=== PATIENT | female | born 1995 | race Hispanic/Latino ===

== ENCOUNTER 2025-02-06 15:35 | Emergency (ER) | payer OTHER ==
[~2025-02-06] VITALS: Ht 165.1 cm; Wt 68.0 kg
--- NOTE | 2025-02-06 15:51 | ERN ---
ED Note History of Present Illness Stated Complaint: SYNCOPE Chief Complaint: Syncope Time Seen by MD: 15:41 Dictation: PATIENT IS A 29-YEAR-OLD FEMALE HERE WITH HER MOTHER WITH COMPLAINTS OF A SYNCOPAL EPISODES, 30 MINUTES PRIOR TO ARRIVAL. PER THE MOTHER, SHE WAS TALKING ON THE PHONE WITH THE PATIENT WITH THE PATIENT'S STOPPED TALKING AND SHE WAS TOLD BY THE DAUGHTER THAT PATIENT HAD FAINTED. PATIENT CURRENTLY ALERT AND ORIENTED X4 SPEECH IS CLEAR. SHE IS COMPLAINING OF A RIGHT TEMPOROPARIETAL HEADACHE AND FEELS DIZZY. SHE STATES SHE HAD A SIMILAR EPISODE TWO DAYS AGO IN [facility] HAD A CT DONE THAT WAS NEGATIVE. NO MARTINES OR RACCOON SIGN. NO HEMOTYMPANUM. IN HIS NO SPECIFIC COMPLAINTS OF ACCEPT HER EPIGASTRIC AREA IS BURNING. Allergies: Coded Allergies: No Known Allergies (Unverified Allergy, Unknown, 02/06/25) Past Medical History Past Medical History: Anxiety, Depression Surgical History: BTL, History: Not Applicable LMP: Feb 01, 2025 RN Note Reviewed/Agreed w/PFSH: Yes Review of System Dictation CONSTITUTIONAL: NEGATIVE EXCEPT FOR HPI HEAD/FACE: NEGATIVE EXCEPT FOR HPI SYNCOPE EENT: NEGATIVE EXCEPT FOR HPI RESPIRATORY: NEGATIVE EXCEPT FOR HPI GASTROINTESTINAL/ABDOMINAL: NEGATIVE EXCEPT FOR HPI GENITOURINARY: NEGATIVE EXCEPT FOR HPI MUSCULOSKELETAL: NEGATIVE EXCEPT FOR HPI INTEGUMENTARY: NEGATIVE EXCEPT FOR HPI NEUROLOGICAL/PSYCH: NEGATIVE EXCEPT FOR HPI RIGHT TEMPOROPARIETAL HEADACHE. HEMATOLOGIC/LYMPHATIC: NEGATIVE EXCEPT FOR HPI ALL SYSTEMS NEGATIVE, EXCEPT NOTED ABOVE. 13 POINT REVIEW OF SYSTEMS ASSESSED AND ALL NEGATIVE EXCEPT FOR ABOVE. Initial Vital Sign VS Vital Signs Date Time Temp Pulse Resp B/P (MAP) Pulse Ox O2 Delivery O2 Flow Rate FiO2 02/06/25 15:37 98.2 85 16 117/80 100 Room Air 0 02/06/25 16:29 21 Physical Exam Dictation VITAL SIGNS REVIEWED GENERAL APPEARANCE: ALERT, ORIENTED X 3, NO ACUTE DISTRESS, WELL DEVELOPED, NOURISHED. HEAD AND FACE: NON-TRAUMATIC. NO MARTINES OR RACCOON SIGN. EYES: PERRL, PINK CONJUNCTIVAS, EYELID NO TRAUMA, ANTERIOR CHAMBER WITH ARCUS SENILIS. EARS: PINNAS INTACT AND NO SIGNS OF TRAUMA OR ERYTHEMA EAR CANALS CLEAR AND NO DISCHARGE TM NO ERYTHEMA NO HEMOTYMPANUM NOSE: NO DISCHARGE, NO BLEEDING. OROPHARYNX: MOUTH NORMAL, TONGUE PINK, PHARYNX CLEAR,NO ERYTHEMA, TONSILS NO EXUDATES, NO ABSCESSES NOTED, MUCOUS MEMBRANE MOIST NECK: SUPPLE, NON-TENDER, NO THYROMEGALY, NO MASSES, NO JVD, NO BRUITS BREAST:DEFERRED CHEST:NO TENDERNESS, NO CREPITUS, NO PARADOXICAL MOVEMENT, NO RETRACTIONS LUNGS:CLEAR, WELL-VENTILATED, SYMMETRIC, NO RALES, NO WHEEZING, NO RHONCHI, NO STRIDOR, GOOD BREATH SOUNDS BILATERALLY HEART: REGULAR RATE, REGULAR RHYTHM, NO MURMUR, NO GALLOPS VASCULAR: NO PERIPHERAL EDEMA, ABDOMEN: SOFT, POSITIVE BOWEL SOUNDS, NONDISTENDED, NO GUARDING, MILD EPIGASTRIC TENDERNESS, NO REBOUND, NO MASSES NO HEPATOMEGALY, NO SPLENOMEGALY, NO GONZALEZ'S SIGN, NO HERNIAS. RECTAL: DEFERRED GENITAL: DEFERRED NEUROLOGICAL: NORMAL SPEECH, MOTOR FUNCTION INTACT, SENSORY FUNCTION INTACT MUSCULOSKELETAL: NECK NONTENDER, FULL RANGE OF MOTION, BACK NONTENDER, FULL RANGE OF MOTION, EXTREMITIES: NONTENDER, FULL RANGE OF MOTION SKIN: COLOR PINK, DRY, NO TURGOR, NO RASH, NO LACERATIONS, NO ABRASIONS, NO CONTUSIONS. LYMPHATIC: DEFERRED Results (Laboratory/Radiology) Laboratory/Radiology Laboratory Tests Test 02/06/25 16:18 02/06/25 17:15 White Blood Count 6.3 K/uL (4.8-10.8) Red Blood Count 5.38 MIL/uL (4.00-5.50) Hemoglobin 15.0 g/dL (12.0-16.0) Hematocrit 45.5 % (36-48) Mean Corpuscular Volume 84.6 fL (79-99) Mean Corpuscular Hemoglobin 27.9 pg (27.0-33.0) Mean Corpuscular Hemoglobin Concent 33.0 g/dL (32.0-36.0) Red Cell Distribution Width 14.2 % (11.0-15.5) Platelet Count 407 K/uL (130-400) H Mean Platelet Volume 9.1 fL (7.5-10.5) Immature Granulocyte % (Auto) 0.3 % (0-1) Neutrophils (%) (Auto) 51.1 % (40.0-77.0) Lymphocytes (%) (Auto) 42.1 % (21.0-51.0) Monocytes (%) (Auto) 4.8 % (3.0-13.0) Eosinophils (%) (Auto) 1.1 % (0.0-8.0) Basophils (%) (Auto) 0.6 % (0.0-5.0) Neutrophils # (Auto) 3.2 K/uL (1.8-7.7) Lymphocytes # (Auto) 2.7 K/uL (1.0-4.8) Monocytes # (Auto) 0.3 K/uL (0.1-1.0) Eosinophils # (Auto) 0.07 K/uL (0.00-0.70) Basophils # (Auto) 0.04 K/uL (0.00-0.20) Absolute Immature Granulocyte (auto 0.02 K/uL (0-1) Nucleated Red Blood Cells 0.0 % (0.0-0.19) Sodium Level 138 mmol/L (136-145) Potassium Level 3.5 mmol/L (3.5-5.1) Chloride Level 102 mmol/L (101-111) Carbon Dioxide Level 25 mmol/L (21-32) Blood Urea Nitrogen 7 mg/dL (7-18) Creatinine 0.7 mg/dL (0.5-1.0) Glomerular Filtration Rate Calc 121 mL/min (>90) Random Glucose 88 mg/dL (70-105) Total Calcium 8.9 mg/dL (8.5-10.1) Magnesium Level 2.20 mg/dL (1.80-2.40) Troponin I High Sensitivity < 4 ng/L (4-50) L Serum Test, Qualitative NEGATIVE (NEGATIVE) Urine Color COLORLESS (YELLOW) Urine Appearance CLEAR (CLEAR) Urine pH 5.5 (5.0-8.0) Urine Specific [place] 1.005 (1.001-1.031) Urine Protein NEGATIVE mg/dL (NEGATIVE) Urine Glucose (UA) NEGATIVE mg/dL (NEGATIVE) Urine Ketones 5 mg/dL (NEGATIVE) H Urine Occult Blood LARGE (NEGATIVE) H Urine Nitrate NEGATIVE (NEGATIVE) Urine Bilirubin NEGATIVE mg/dL (NEGATIVE) Urine Urobilinogen 0.2 mg/dL (0.2-1.0) Urine Leukocyte Esterase NEGATIVE [place]/uL Urine RBC 26-50 /HPF (0-1) H Urine WBC 2-5 /HPF (0-1) H Urine Squamous Epithelial Cells RARE /HPF (0-2) Urine Bacteria None /HPF (None Seen) Urine Opiates Screen NEGATIVE (NEGATIVE) Urine Barbiturates Screen NEGATIVE (NEGATIVE) Urine Phencyclidine Screen NEGATIVE (NEGATIVE) Urine Amphetamines Screen NEGATIVE (NEGATIVE) Urine Benzodiazepines Screen NEGATIVE (NEGATIVE) Urine Cocaine Screen NEGATIVE (NEGATIVE) Urine Marijuana (THC) Screen NEGATIVE (NEGATIVE) ead Without IV contrast. CLINICAL HISTORY: RIGHT TEMPOROPARIETAL HEADACHE TWO DAYS. SYNCOPE TECHNIQUE: Axial computed tomography images of the head/brain without intravenous contrast. COMPARISON: None provided. FINDINGS: BRAIN: No evidence of acute hemorrhage. No mass lesion. No CT evidence for acute territorial infarct. No midline shift or extra-axial collections. VENTRICLES: No hydrocephalus. ORBITS: The orbits are unremarkable. SINUSES AND MASTOIDS: The paranasal sinuses and mastoid air cells are clear. BONES: No fracture. SOFT TISSUES: Unremarkable. IMPRESSION: No acute intracranial abnormality. /[place] Labs Reviewed?: Yes EKG: (+) NSR EKG Comment: 1545/EKG NORMAL SINUS RHYTHM/HEART RATE 83/AXIS NORMAL/NO ECTOPY ED Course ED Course Orders Procedure Category Date Status Time Ct Head/Brain W/O CT 02/06/25 Resulted Contrast 15:47 Testing, LAB 02/06/25 Complete Serum Hcg 15:47 Cbc With Differential LAB 02/06/25 Complete 15:47 12 Lead Ekg Tracing- EKG 02/06/25 Logged Technical 15:47 0.9%Nacl 1000ml (Ns PHA 02/06/25 Complete 1000ml) 16:00 Magnesium LAB 02/06/25 Complete 15:47 Troponin I High LAB 02/06/25 Complete Sensitivity 15:47 Urinalysis Profile LAB 02/06/25 Complete 15:47 Basic Metabolic Panel LAB 02/06/25 Complete 15:47 Drug Screen Urine LAB 02/06/25 Complete 15:47 Orthostatic Vital CPOE 02/06/25 Transmitted Signs 18:52 Current Medications Medications (Trade) Dose Ordered Sig/Veronika Route PRN Reason Start Time Stop Time Status Last Admin Dose Admin Sodium Chloride 1,000 ml @ 0 mls/hr ONCE ONCE IV 02/06/25 16:00 02/06/25 16:01 DC 02/06/25 16:20 Vital Signs Date Time Temp Pulse Resp B/P (MAP) Pulse Ox O2 Delivery O2 Flow Rate FiO2 02/06/25 16:29 98.1 79 19 103/61 100 Room Air* 0 21 02/06/25 15:37 98.2 85 16 117/80 100 Room Air 0 1900/ORTHOSTATIC BLOOD PRESSURE CHECKS LYING 112/72/HEART RATE 78 SITTING 120/82 HEART RATE 81 STANDING 115/79 HEART RATE 83 PATIENT IS NEUROLOGICALLY INTACT SPEECH IS CLEAR GAIT IS STEADY. ORTHOSTATICS WITH A NORMAL LIMITS. SHE DOES COMPLAIN OF A RIGHT FRONTAL HEADACHE MOTHER AND PATIENT AWARE TO FOLLOW UP WITH CARDIOLOGY FOR POSSIBLE CARDIAC ETIOLOGY OF SYNCOPE. ALL QUESTIONS AND HEART Score Response (Comments) Value History: Low suspicion (0) 0 EKG: Normal 0 Age: < 45yrs (0) 0 Risk Factors: No known risk factors (0) 0 Initial Troponin: Normal limit (0) 0 Total 0 Medical Decision Making MDM MDM: DIFFERENTIAL DIAGNOSIS: ACS/AMI/ELECTROLYTE IMBALANCE/DEHYDRATION/DRUG ABUSE//CENTRAL NERVOUS SYSTEM LESION RATIONALE: TESTS CONSIDERED AND ORDERED SECONDARY TO SHARED DECISION MAKING INCLUDE: PREVIOUS OUTSIDE RECORDS REVIEWED: OLD ER VISITS. RISK OF COMPLICATION AND/OR MORBIDITY OR MORTALITY OF PATIENT MANAGEMENT: NONE MEDICATIONS-PER MEDICATION RECONCILIATION NEED FOR HOSPITALIZATION: PATIENT DOES NOT MEET CRITERIA FOR HOSPITALIZATION. NONE NEED FOR EMERGENCY MAJOR/MINOR SURGERY: NO THERE ARE NO SOCIAL CONCERNS WITH THIS PATIENT. PRESCRIPTION DRUG MANAGEMENT NONE PRESCRIPTIONS WILL INCLUDE SYMPTOMATIC CARE PATIENT'S PRIOR EXTERNAL MEDICAL RECORDS FROM OTHER ER VISITS WERE REVIEWED BY ME INDICATED. PRIOR TESTING AND RESULTS FROM PREVIOUS VISITS WERE REVIEWED. PRIOR TESTS WERE TAKEN INTO ACCOUNT WITH MEDICAL DECISION MAKING AND RESOURCE UTILIZATION, INDEPENDENT HISTORIAN/HISTORIANS WERE USED TO OBTAIN COMPLETE MEDICAL HISTORY. I INDEPENDENTLY INTERPRETED THE TEST THAT WERE PERFORMED, RESULTS WERE REVIEWED BY ME AND CONSIDERED FINDINGS ON RADIOLOGY IF ORDERED. MEDICAL MANAGEMENT AND EXAMINATION INTERPRETATION DISCUSSIONS WERE HAD BY ME WITH OTHER QUALIFIED HEALTHCARE PROFESSIONALS INDICATED FOR THE PATIENT'S CARE. DX & DISP Disposition: Discharge Departure Impression: Primary Impression: Vasovagal syncope Additional Impression: Hematuria Condition: Stable Additional Instructions: FOLLOW-UP WITH PRIMARY CARE PROVIDER IN 1 TO 2 DAYS. TAKE MEDICATIONS DIRECTED HERE IN THE EMERGENCY ROOM. OKAY TO CONTINUE HOME MEDICATIONS UNLESS OTHERWISE DISCUSSED DURING YOUR VISIT IN THE EMERGENCY ROOM TODAY. RETURN TO YOUR NEAREST EMERGENCY ROOM IF SYMPTOMS WORSEN OR IF THERE IS NO IMPROVEMENT. CALL 911 IF YOU NEED IMMEDIATE ASSISTANCE. TAKE TYLENOL OR MOTRIN [id number] NEEDED AND IF NO CONTRAINDICATIONS ARE PRESENT. INCREASE ORAL HYDRATION. A WOUND CULTURE OR URINE CULTURE WAS ORDERED HERE IN THE EMERGENCY ROOM DEPARTMENT PLEASE FOLLOW-UP WITH PRIMARY CARE PROVIDER AND ADVISE THEM TO GET REPEAT PORTS FROM OUR FACILITY. IF YOU HAD ANY MATEO WRAP/SPLINTS THAT WERE APPLIED HERE, PLEASE DO NOT REMOVE THEM UNTIL YOU SEE YOUR PRIMARY CARE OR SPECIALTY. STRONGLY SUGGEST CHANGING POSITION SLOWLY FROM LYING TO STANDING OR WALKING. INCREASE YOUR WATER INTAKE. FOLLOW UP WITH THE YOUR PRIMARY CARE DOCTOR OR CALL SUPREME COURT JUSTICE'S FOR AN APPOINTMENT AND FOLLOW UP. Referrals: BERONICA TATUM MD Time of Disposition: 19:05 I have reviewed the case, and I agree with, Diagnosis and Plan DAVID WHITE DIRECTOR GENERAL Feb 06, 2025 15:51
[2025-02-06] MEDS: 0.9%NACL 1000ML 1,000 ML IV ONE (16:20)
[2025-02-06 16:24] LABS: IMMATURE GRANULOCYTE ABSOLUTE 0.02 K/uL (0-1); NUCLEATED RED BLOOD CELLS 0.0 % (0.0-0.19); PLATELET COUNT (AUTO) 407 K/uL (130-400); RED BLOOD CELL COUNT(AUTO) 5.38 MIL/uL (4.00-5.50); RED CELL DISTRIBUTION WIDTH 14.2 % (11.0-15.5); WHITE BLOOD COUNT (AUTO) 6.3 K/uL (4.8-10.8)
[2025-02-06 16:32] LABS: CREATININE 0.7 mg/dL (0.5-1.0); GLOMERULAR FILTR. RATE CALC 121.0 mL/min (>90); GLUCOSE,RANDOM 88.0 mg/dL (70-105); SODIUM SERUM 138.0 mmol/L (136-145); UREA NITROGEN, BLOOD 7.0 mg/dL (7-18)
[2025-02-06 17:22] LABS: APPEARANCE,URINE CLEAR (CLEAR); GLUCOSE, URINE (UA) NEGATIVE (NEGATIVE); LEUKOCYTE ESTERASE ,URINE NEGATIVE Leu/uL (NEGATIVE); NITRATE,URINE NEGATIVE (NEGATIVE); OCCULT BLOOD,URINE LARGE (NEGATIVE)
[2025-02-06 17:23] LABS: ADD UA MICROSCOPIC YES
[2025-02-06 17:24] LABS: SQUAMOUS EPITHELIAL CELL,UR RARE /HPF (0-2)
[2025-02-06 17:29] LABS: AMPHET/METH SCREEN,URINE NEGATIVE (NEGATIVE); BARBITURATE SCREEN, URINE NEGATIVE (NEGATIVE); CANNABINOID SCREEN,URINE NEGATIVE (NEGATIVE); COCAINE SCREEN,URINE NEGATIVE (NEGATIVE)
--- NOTE | 2025-02-06 17:58 | HMCIMG ---
EXAM: CT Head Without IV contrast. CLINICAL HISTORY: RIGHT TEMPOROPARIETAL HEADACHE TWO DAYS. SYNCOPE TECHNIQUE: Axial computed tomography images of the head/brain without intravenous contrast. COMPARISON: None provided. FINDINGS: BRAIN: No evidence of acute hemorrhage. No mass lesion. No CT evidence for acute territorial infarct. No midline shift or extra-axial collections. VENTRICLES: No hydrocephalus. ORBITS: The orbits are unremarkable. SINUSES AND MASTOIDS: The paranasal sinuses and mastoid air cells are clear. BONES: No fracture. SOFT TISSUES: Unremarkable. IMPRESSION: No acute intracranial abnormality. /[place]
[2025-02-06 19:29] VITALS: BP 107/71; PULSE 78; RESP 19; TEMP 97.9; O2SAT 95
--- NOTE | 2025-02-07 05:46 | EKG ---
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
== END 2025-02-06 19:28 | disposition home or self-care (01) ==
LOC: EDH 15:35
DX: R55 Syncope and collapse (principal); R31.9 Hematuria, unspecified; Z98.51 Tubal ligation status; Z98.890 Other specified postprocedural states
CPT/HCPCS: 99284; 96360; 70450; 83735; 84484; 80048; 80305; 84703; 85025; 36415; 93005; 81001; J7030

== ENCOUNTER 2025-02-08 10:44 | Emergency (ER) | payer OTHER ==
[~2025-02-08] VITALS: Ht 165.1 cm; Wt 68.5 kg
--- NOTE | 2025-02-08 11:04 | ERN ---
ED Note History of Present Illness Stated Complaint: CP Chief Complaint: Chest Pain Time Seen by MD: 10:53 Dictation: Patient is a 29-year-old female coming in today with complaints of chest pain and states she had a syncopal episode 2 hours prior to arrival. On-call. She did not hear a head no LOC no nausea vomiting. She states she has had this being going on for the last year has been seen multiple times in the emergency rooms in the past with cardiac workups MRIs of the brain CAT scans etc. she was seen yesterday at [facility] had a full workup to include drug screen/cardiac workup check magnesium chest x-ray urine and CT of the head. Status word normal for her she was advised she was suffering from vasovagal near-syncope and to change positions from lying to sitting to standing slowly before ambulating. She was advised to see a local rehabilitation clerk's however said she could not get through them today if she does have an appointment with the radiotelegraph operator at 13:00 hours. She is alert and oriented x4 speech is clear. No other complaints of voice She states she has had similar episodes and was worked up extensively in [place] where she was living and then again in [facility]. Allergies: Coded Allergies: No Known Allergies (Unverified Allergy, Unknown, 02/06/25) Home Meds Active Scripts Potassium Bicarbonate/Cit AC (Klor-Con-Ef/K-Lyte) 25 Meq Eftb, 1 TAB PO DAILY for 5 Days, #5 TAB 0 Refills Prov:DAVID WHITE CONDITIONING ROOM WORKER 02/08/25 Past Medical History Past Medical History: Anxiety, Depression, GERD Additional Past Medical Hx: TMJ Surgical History: BTL, Surgical History Other: DENTAL SX, BILAT EAR TUBES History: Not Applicable LMP: Feb 02, 2025 : 2 Para: 2 Aborts: 0 RN Note Reviewed/Agreed w/PFSH: Yes Review of System Dictation CONSTITUTIONAL: Negative except for HPI HEAD/FACE: Negative except for HPI syncope EENT: Negative except for HPI RESPIRATORY: Negative except for HPI chest pain GASTROINTESTINAL/ABDOMINAL: Negative except for HPI GENITOURINARY: Negative except for HPI MUSCULOSKELETAL: Negative except for HPI INTEGUMENTARY: Negative except for HPI NEUROLOGICAL/PSYCH: Negative except for HPI HEMATOLOGIC/LYMPHATIC: Negative except for HPI All Systems Negative, Except as noted above. 13 point review of systems assessed and all negative except for above. Initial Vital Sign VS Vital Signs Date Time Temp Pulse Resp B/P (MAP) Pulse Ox O2 Delivery O2 Flow Rate FiO2 02/08/25 10:53 97.7 84 16 113/76 100 Room Air 0 Physical Exam Dictation Vital Signs reviewed General Appearance: Alert, oriented x 3, anxious acute distress, well developed, nourished. Head and Face: non-traumatic. Eyes: PERRL, pink conjunctivas, eyelid no trauma, anterior chamber with arcus senilis. Ears: Pinnas intact and no signs of trauma or erythema ear canals clear and no discharge TM no erythema Nose: No discharge, no bleeding. Oropharynx: Mouth normal, tongue pink, pharynx clear,no erythema, tonsils no exudates, no abscesses noted, mucous membrane moist Neck: Supple, non-tender, no thyromegaly, no masses, no JVD, no bruits Breast:Deferred Chest:No tenderness, no crepitus, no paradoxical movement, no retractions no con tusions Lungs:Clear, well-ventilated, symmetric, no rales, no wheezing, no rhonchi, no stridor, good breath sounds bilaterally Heart: Regular rate, regular rhythm, no murmur, no gallops Vascular: no peripheral edema, Abdomen: Soft, positive bowel sounds, nondistended, no guarding, nontender, no rebound, no masses no hepatomegaly, no splenomegaly, no Childers's sign, no hernias. Rectal: Deferred Genital: Deferred Neurological: Normal speech, motor function intact, sensory function intact Musculoskeletal: Neck nontender, full range of motion, back nontender, full range of motion, Extremities: nontender, full range of motion Skin: Color pink, dry, no turgor, no rash, no lacerations, no abrasions, no contusions. Lymphatic: Deferred Results (Laboratory/Radiology) Laboratory/Radiology Laboratory Tests Test 02/08/25 11:05 White Blood Count 5.3 K/uL (4.8-10.8) Red Blood Count 4.95 MIL/uL (4.00-5.50) Hemoglobin 14.0 g/dL (12.0-16.0) Hematocrit 41.8 % (36-48) Mean Corpuscular Volume 84.4 fL (79-99) Mean Corpuscular Hemoglobin 28.3 pg (27.0-33.0) Mean Corpuscular Hemoglobin Concent 33.5 g/dL (32.0-36.0) Red Cell Distribution Width 14.1 % (11.0-15.5) Platelet Count 407 K/uL (130-400) H Mean Platelet Volume 9.4 fL (7.5-10.5) Immature Granulocyte % (Auto) 0.6 % (0-1) Neutrophils (%) (Auto) 59.3 % (40.0-77.0) Lymphocytes (%) (Auto) 34.5 % (21.0-51.0) Monocytes (%) (Auto) 4.0 % (3.0-13.0) Eosinophils (%) (Auto) 0.8 % (0.0-8.0) Basophils (%) (Auto) 0.8 % (0.0-5.0) Neutrophils # (Auto) 3.2 K/uL (1.8-7.7) Lymphocytes # (Auto) 1.8 K/uL (1.0-4.8) Monocytes # (Auto) 0.2 K/uL (0.1-1.0) Eosinophils # (Auto) 0.04 K/uL (0.00-0.70) Basophils # (Auto) 0.04 K/uL (0.00-0.20) Absolute Immature Granulocyte (auto 0.03 K/uL (0-1) Nucleated Red Blood Cells 0.0 % (0.0-0.19) Sodium Level 140 mmol/L (136-145) Potassium Level 3.3 mmol/L (3.5-5.1) L Chloride Level 105 mmol/L (101-111) Carbon Dioxide Level 24 mmol/L (21-32) Blood Urea Nitrogen 0 mg/dL (7-18) L Creatinine 0.7 mg/dL (0.5-1.0) Glomerular Filtration Rate Calc 121 mL/min (>90) Random Glucose 102 mg/dL (70-105) Total Calcium 8.7 mg/dL (8.5-10.1) Troponin I High Sensitivity < 4 ng/L (4-50) L Labs Reviewed?: Yes EKG: (+) NSR EKG Comment: 1043/EKG normal sinus rhythm/heart rate 69/axis normal/no ectopy ED Course ED Course Orders Procedure Category Date Status Time Cbc With Differential LAB 02/08/25 Complete 10:56 12 Lead Ekg Tracing- EKG 02/08/25 Logged Technical 10:56 Troponin I High LAB 02/08/25 Complete Sensitivity 10:56 Basic Metabolic Panel LAB 02/08/25 Complete 10:56 12 Lead Ekg Tracing- EKG 02/08/25 Logged Technical 11:00 Potassium Bicarb/Cit PHA 02/08/25 In Process Ac 25meq (K-Lyte Ta 12:00 Current Medications Medications (Trade) Dose Ordered Sig/Veronika Route PRN Reason Start Time Stop Time Status Last Admin Dose Admin Potassium Bicarbonate (K-Lyte Tablet Eff 25 Meq Tablet.eff) 25 meq ONCE ONCE PO 02/08/25 12:00 02/08/25 12:01 Vital Signs Date Time Temp Pulse Resp B/P (MAP) Pulse Ox O2 Delivery O2 Flow Rate FiO2 02/08/25 10:53 97.7 84 16 113/76 100 Room Air 0 1140/CARDIAC WORKUP NEGATIVE EKG NORMAL SINUS RHYTHM. THE ONLY OUTLYING LAB IS POTASSIUM 3.3 AND WE WILL BE REPLACED WITH [id number] MEQ PATIENT WILL BE DISCHARGED HOME WITH A ADDITIONAL POTASSIUM FOR THE NEXT THREE DAYS. TOLD TO KEEP HER APPOINTMENT WITH HER GARBAGE COLLECTOR DRIVER'S WILDLIFE CONSERVATION OFFICER TODAY DIRECTED SPOKE TO PATIENT IN THE WAITING ROOM BEFORE SHE LEFT FOR MOTHER TO GO TO HER WILDLIFE CONSERVATION OFFICER APPOINTMENT. SHE STATES SHE HAS A APPOINTMENT SHE HAS AT [facility] SHE MAY WHILE SHE WAS STILL LIVING IN [place] TWO MONTHS AGO AND COULD NOT GET INTO SEE A SPECIALIST IN [place]. PATIENT WAS MADE AWARE THAT SHE WILL BE GETTING [id number] MEQ AND TO TAKE HIM DIRECTED UNTIL GONE. SHE STATES SHE HAS HAD LOW POTASSIUM IN THE PAST THE NEEDED TO BE REPLACED WHILE SHE WAS AT THE HOSPITAL. HEART Score Response (Comments) Value History: Low suspicion (0) 0 EKG: Normal 0 Age: < 45yrs (0) 0 Risk Factors: No known risk factors (0) 0 Initial Troponin: Normal limit (0) 0 Total 0 Medical Decision Making MDM MEDICAL DECISION-MAKING BASED ON REPEAT CARDIAC WORKUP, LAST DONE 02/07/2025. WORKUP IS NEGATIVE EXCEPT FOR POTASSIUM 3.3 THIS WAS REPLACED IN THE EMERGENCY ROOM PATIENT DISCHARGED HOME WITH POTASSIUM REPLACEMENTS FOR THE NEXT THREE DAYS SHE STATES SHE HAS A AN APPOINTMENT WITH THE WILDLIFE CONSERVATION OFFICER AT 13:00 HOURS A DAY STRONGLY ENCOURAGED TO KEEP THAT APPOINTMENT AND TO CALL CARDIOLOGY FOR A FOLLOW UP TODAY DIAGNOSIS VASOVAGAL NEAR-SYNCOPE AND WITH THE ADVISED TO CHANGE POSITION SLOWLY. DX & DISP Disposition: Discharge Departure Impression: Primary Impression: Vasovagal syncope Additional Impression: Hypokalemia Condition: Stable Scripts Potassium Bicarbonate/Cit AC (Klor-Con-Ef/K-Lyte) 25 Meq Eftb 1 TAB PO DAILY for 5 Days, #5 TAB 0 Refills Prov: DAVID WHITE 02/08/25 Additional Instructions: FOLLOW-UP WITH PRIMARY CARE PROVIDER IN 1 TO 2 DAYS. TAKE MEDICATIONS DIRECTED HERE IN THE EMERGENCY ROOM. OKAY TO CONTINUE HOME MEDICATIONS UNLESS OTHERWISE DISCUSSED DURING YOUR VISIT IN THE EMERGENCY ROOM TODAY. RETURN TO YOUR NEAREST EMERGENCY ROOM IF SYMPTOMS WORSEN OR IF THERE IS NO IMPROVEMENT. CALL 911 IF YOU NEED IMMEDIATE ASSISTANCE. TAKE TYLENOL OR MOTRIN [id number] NEEDED AND IF NO CONTRAINDICATIONS ARE PRESENT. INCREASE ORAL HYDRATION. A WOUND CULTURE OR URINE CULTURE WAS ORDERED HERE IN THE EMERGENCY ROOM DEPARTMENT PLEASE FOLLOW-UP WITH PRIMARY CARE PROVIDER AND ADVISE THEM TO GET REPEAT PORTS FROM OUR FACILITY. IF YOU HAD ANY MATEO WRAP/SPLINTS THAT WERE APPLIED HERE, PLEASE DO NOT REMOVE THEM UNTIL YOU SEE YOUR PRIMARY CARE OR SPECIALTY. TAKE POTASSIUM REPLACEMENTS DIRECTED UNTIL GONE. KEEP YOUR APPOINTMENT WITH THE WILDLIFE CONSERVATION OFFICER TODAY AT 13:00 FOLLOW UP WITH GARBAGE COLLECTOR DRIVER'S IN MAKING APPOINTMENT FOR OUTPATIENT FOLLOW UP Referrals: SELF,REFERRAL (PCP) Time of Disposition: 11:40 I have reviewed the case, and I agree with, Diagnosis and Plan DAVID WHITE Feb 08, 2025 11:04
[2025-02-08 11:22] LABS: IMMATURE GRANULOCYTE ABSOLUTE 0.03 K/uL (0-1); NUCLEATED RED BLOOD CELLS 0.0 % (0.0-0.19); PLATELET COUNT (AUTO) 407 K/uL (130-400); RED BLOOD CELL COUNT(AUTO) 4.95 MIL/uL (4.00-5.50); RED CELL DISTRIBUTION WIDTH 14.1 % (11.0-15.5); WHITE BLOOD COUNT (AUTO) 5.3 K/uL (4.8-10.8)
[2025-02-08 11:26] LABS: CREATININE 0.7 mg/dL (0.5-1.0); GLOMERULAR FILTR. RATE CALC 121.0 mL/min (>90); GLUCOSE,RANDOM 102.0 mg/dL (70-105); SODIUM SERUM 140.0 mmol/L (136-145); UREA NITROGEN, BLOOD 0.0 mg/dL (7-18)
[2025-02-08] MEDS ORDERED: POTA25TA40 PO (11:41)
[2025-02-08 12:25] VITALS: BP 118/74; PULSE 80; RESP 16; TEMP 97.8; O2SAT 99
--- NOTE | 2025-02-08 15:01 | EKG ---
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
[2025-02-10] MEDS ORDERED: FAMO-136 PO (00:26)
[2025-02-10] MEDS ORDERED: LINA290C PO (00:26)
== END 2025-02-08 12:26 | disposition home or self-care (01) ==
LOC: EDH 10:44
DX: R55 Syncope and collapse (principal); E87.6 Hypokalemia; R07.89 Other chest pain; F41.9 Anxiety disorder, unspecified; F32.A Depression, unspecified; K21.9 Gastro-esophageal reflux disease without esophagitis; Z98.51 Tubal ligation status; Z98.890 Other specified postprocedural states
CPT/HCPCS: 36415; 80048; 84484; 85025; 93005; 99284

== ENCOUNTER 2025-02-09 08:12 | Inpatient (IN) | payer OTHER ==
[~2025-02-09] VITALS: Ht 165.1 cm; Wt 67.2 kg
[~2025-02-09 08:12] MED LIST: POTA25TA40 PO
--- NOTE | 2025-02-09 08:28 | ERN ---
General Chief Complaint: Multiple Complaints Stated Complaint: HEADACHE/ NAUSEA/ AMS Time Seen by MD: 08:18 Source: patient History of Present Illness Initial Comments Patient is a 29-year-old female coming in due to ongoing syncopal episodes. Per mother patient has been having syncopal episodes several times this past week. Patient has been evaluated in the past but symptoms keep on getting worse mother's bring her in for further evaluation. Allergies: Coded Allergies: No Known Allergies (Unverified Allergy, Unknown, 02/06/25) Home Meds Active Scripts Potassium Bicarbonate/Cit AC (Klor-Con-Ef/K-Lyte) 25 Meq Eftb, 1 TAB PO DAILY for 5 Days, #5 TAB 0 Refills Prov:DAVID WHITE DIET CONSULTANT 02/08/25 Past Medical History Past Medical History: Anxiety, Depression, GERD Medical History Other: TMJ Past Surgical History: BTL, Surgical History Other: DENTAL SX, BILAT EAR TUBES Female( History) History: Not Applicable : 2 Para: 2 Aborts: 0 ROS Dictation CONSTITUTIONAL: No chills, no fever, weakness, no diaphoresis, no malaise. HEAD/FACE: No signs of trauma. EENT: No eye pain, no blurred vision, no tearing, no double vision, no ear pain, no ear discharge, no nose pain, no nasal congestion, no throat pain, no th roat swelling, no mouth pain. RESPIRATORY: No cough, no orthopnea, no SOB, no stridor, no wheezing. CARDIOVASCULAR: No chest pain, no edema, no palpitations, syncope. GASTROINTESTINAL/ABDOMINAL: No abdominal pain, no constipation, no diarrhea, no nausea, no vomiting. GENITOURINARY: No abnormal discharge, no dysuria, no frequent urination, no hematuria. No complaints of pain in the genitals. MUSCULOSKELETAL: No back pain, no gout, no joint pain, no joint swelling, no muscle pain, no muscle stiffness, no neck pain. INTEGUMENTARY: No change in color, no change in hair/nails, no dryness, no lesion, no lumps, no rash. NEUROLOGICAL/PSYCH: No anxiety, not depressed, no emotional problem, no headache, no numbness, no pre-existing deficit, no history of seizures, no tremors, no weakness. HEMATOLOGIC/LYMPHATIC: Not anemic, no history of blood clots, no apparent bleeding, no bruising, glands not swollen. All Systems Negative, Except as Noted. Physical Exam Physical Exam Dictation VITAL SIGNS: Reviewed. GENERAL APPEARANCE: Alert, oriented x3, no acute distress, obese. HEAD AND FACE: Non-traumatic. EYES: PERRL, pink conjunctivas, eyelid no trauma, anterior chamber clear. EARS: Pinnas intact and no signs of trauma or erythema. Ear canals clear and no discharge. TMs no erythema. NOSE: No discharge, no bleeding. OROPHARYNX: Mouth normal, teeth no caries, tongue pink. Pharynx clear, no erythema. Tonsils no exudates, no abscesses noted. Mucous membrane moist. NECK: Supple, non-tender, no thyromegaly, no masses, no JVD, no bruits. BREAST: Deferred. CHEST: No tenderness, no crepitus, no paradoxical movement, no retractions. LUNGS: Clear, well-ventilated, symmetric, no rales, no wheezing, no rhonchi, no stridor, good breath sounds bilaterally. HEART: Regular rate, regular rhythm, no murmur, no gallops. VASCULAR: No peripheral edema. ABDOMEN: Soft, positive bowel sounds, nondistended, no guarding, nontender, no rebound, no masses no hepatomegaly, no splenomegaly, no Childers's sign, no hernias. RECTAL: Deferred. GENITAL: Deferred. NEUROLOGICAL: Normal speech, gross motor function intact, gross sensory function intact. MUSCULOSKELETAL: Neck nontender, full range of motion, back nontender, full range of motion. EXTREMITIES: Nontender, full range of motion. SKIN: Color pink, dry, no turgor, no rash, no lacerations, no abrasions, no co ntusions. LYMPHATICS: Deferred. Results Laboratory and Microbiology Lab and Micro Result Laboratory Tests Test 02/09/25 08:49 White Blood Count 4.4 K/uL (4.8-10.8) L Red Blood Count 5.55 MIL/uL (4.00-5.50) H Hemoglobin 15.4 g/dL (12.0-16.0) Hematocrit 46.3 % (36-48) Mean Corpuscular Volume 83.4 fL (79-99) Mean Corpuscular Hemoglobin 27.7 pg (27.0-33.0) Mean Corpuscular Hemoglobin Concent 33.3 g/dL (32.0-36.0) Red Cell Distribution Width 14.1 % (11.0-15.5) Platelet Count 407 K/uL (130-400) H Mean Platelet Volume 9.2 fL (7.5-10.5) Immature Granulocyte % (Auto) 0.2 % (0-1) Neutrophils (%) (Auto) 55.2 % (40.0-77.0) Lymphocytes (%) (Auto) 38.4 % (21.0-51.0) Monocytes (%) (Auto) 4.6 % (3.0-13.0) Eosinophils (%) (Auto) 0.9 % (0.0-8.0) Basophils (%) (Auto) 0.7 % (0.0-5.0) Neutrophils # (Auto) 2.4 K/uL (1.8-7.7) Lymphocytes # (Auto) 1.7 K/uL (1.0-4.8) Monocytes # (Auto) 0.2 K/uL (0.1-1.0) Eosinophils # (Auto) 0.04 K/uL (0.00-0.70) Basophils # (Auto) 0.03 K/uL (0.00-0.20) Absolute Immature Granulocyte (auto 0.01 K/uL (0-1) Nucleated Red Blood Cells 0.0 % (0.0-0.19) Sodium Level 140 mmol/L (136-145) Potassium Level 3.4 mmol/L (3.5-5.1) L Chloride Level 103 mmol/L (101-111) Carbon Dioxide Level 23 mmol/L (21-32) Blood Urea Nitrogen 8 mg/dL (7-18) Creatinine 0.8 mg/dL (0.5-1.0) Glomerular Filtration Rate Calc 104 mL/min (>90) Random Glucose 98 mg/dL (70-105) Total Calcium 9.0 mg/dL (8.5-10.1) Labs Reviewed?: Yes EKG/XRAY/US/CT/MRI EKG Comment 02/09/2025 time 8:31 a.m. Ventricular rate 73 Sinus rhythm MA [address] wave elevation or depression MDM MDM: Differential diagnosis: Syncope episode, generalized body weakness, Rationale: Tests considered and ordered secondary to shared decision making include: labs, ECG and radiology Previous outside records reviewed: Old ER visits. Risk of complication and/or morbidity or mortality of patient management: None Medications-Per medication reconciliation Need for hospitalization: Patient does meet criteria for hospitalization. Need for emergency major/minor surgery: No There are no social concerns with this patient. Prescription drug management Prescriptions will include symptomatic care Patient's prior external medical records from other ER visits were reviewed by me as indicated. Prior testing and results from previous visits were reviewed. Prior tests were taken into account with medical decision making and resource utilization, independent historian/historians were used to obtain complete medical history. I independently interpreted the test that were performed, results were reviewed by me and considered findings on radiology if ordered. Medical management and examination interpretation discussions were had by me with other qualified healthcare professionals as indicated for the patient's care. Patient will be admitted under the care of hospitalist group ED Course Orders Procedure Category Date Status Time Cbc With Differential LAB 02/09/25 Complete 08:19 Basic Metabolic Panel LAB 02/09/25 Complete 08:19 Urinalysis LAB 02/09/25 In Process W/Microscopic 08:19 Drug Screen Urine LAB 02/09/25 In Process 08:19 12 Lead Ekg Tracing- EKG 02/09/25 Logged Technical 08:20 Vital Signs Date Time Temp Pulse Resp B/P (MAP) Pulse Ox O2 Delivery O2 Flow Rate FiO2 02/09/25 08:28 97.9 64 18 162/60 99 Room Air* 0 21 02/09/25 08:14 97.3 99 18 120/77 99 0 DX & DISP Disposition: Inpatient Decision to Admit Time: 09:28 Departure Impression: Primary Impression: SYNCOPE AND COLLAPSE Additional Impression: Hypokalemia Condition: Stable Referrals: SELF,REFERRAL (PCP) CAYETANO LOPEZ MD Feb 09, 2025 08:28
[2025-02-09 08:57] LABS: IMMATURE GRANULOCYTE ABSOLUTE 0.01 K/uL (0-1); NUCLEATED RED BLOOD CELLS 0.0 % (0.0-0.19); PLATELET COUNT (AUTO) 407 K/uL (130-400); RED BLOOD CELL COUNT(AUTO) 5.55 MIL/uL (4.00-5.50); RED CELL DISTRIBUTION WIDTH 14.1 % (11.0-15.5); WHITE BLOOD COUNT (AUTO) 4.4 K/uL (4.8-10.8)
[2025-02-09 08:59] LABS: APPEARANCE,URINE CLEAR (CLEAR); GLUCOSE, URINE (UA) NEGATIVE (NEGATIVE); LEUKOCYTE ESTERASE ,URINE NEGATIVE Leu/uL (NEGATIVE); NITRATE,URINE NEGATIVE (NEGATIVE); OCCULT BLOOD,URINE NEGATIVE (NEGATIVE)
[2025-02-09 09:05] LABS: CREATININE 0.8 mg/dL (0.5-1.0); GLOMERULAR FILTR. RATE CALC 104.0 mL/min (>90); GLUCOSE,RANDOM 98.0 mg/dL (70-105); SODIUM SERUM 140.0 mmol/L (136-145); UREA NITROGEN, BLOOD 8.0 mg/dL (7-18)
[2025-02-09 09:24] LABS: SQUAMOUS EPITHELIAL CELL,UR FEW /HPF (0-2)
--- NOTE | 2025-02-09 09:41 | EKG ---
[facility] Test Date: 2025-02-09 Test Time: 08:31:49 Pat Name: DEENA MATTHEWS Department: [facility] Room: ED Gender: F Application Services Manager: [id number] : 1995 Requested By: CAYETANO LOPEZ Order Number: [id number] Reading MD: Niranjan Hamilton Measurements Intervals [place] Rate: 73 P: 38 NV: 139 QRS: 79 QRSD: 89 T: 43 QT: 390 QTc: 430 Interpretive Statements Sinus rhythm Compared to ECG 02/08/2025 10:43:30 No significant changes Electronically Signed On 02-09-2025 19:05:45 CONFIGURATOR by Niranjan Hamilton Please click the below link to view image of tracing.
[2025-02-09 09:46] LABS: AMPHET/METH SCREEN,URINE NEGATIVE (NEGATIVE); BARBITURATE SCREEN, URINE NEGATIVE (NEGATIVE); CANNABINOID SCREEN,URINE NEGATIVE (NEGATIVE); COCAINE SCREEN,URINE NEGATIVE (NEGATIVE)
[2025-02-09 11:36] LABS: ASPARTATE AMINOTRANSFERASE 14.0 U/L (10-37); TOTAL PROTEIN, SERUM 7.5 g/dL (6.0-8.3)
--- NOTE | 2025-02-09 11:53 | HP ---
[facility] Date of Service: Feb 09, 2025 Time of Service: 11:32 HISTORY OF PRESENT ILLNESS: 29-year-old female with past medical history of PTSD, anxiety who presented to the hospital secondary to episode of syncope. The patient's history is obtained from patient and from patient's mother was present at bedside. Per mother since May 2024 they have noted that patient has been having multiple episodes of syncope at home. Today patient had a episode where she passed out. Her passing out lasted for a few minutes. She was on the phone when the episode happened. Mother denied any seizure-like episode and patient denied any tongue bites, fecal, urinary incontinence. She needed around a minute for her mentation to improve. Denied any previous history of seizures. She does take Lexapro for her underlying PTSD. She is originally from [place] and recently moved to the [place] around 4-5 days ago. She had multiple visits in the ER in [facility] secondary to syncopal episode. Additionally she states she has lost around 70 lb since last year. She feels she is eating well at home but she has episodes of nonspecific abdominal pain. She denies any nausea, vomiting. She also states she has had episodes of bloody stools at home. She was being evaluated by metal molder as outpatient. She is scheduled for outpatient endoscopy and colonoscopy in the coming week. She denied any falls. As a child the patient was active and denied any syncopal episode with physical activity. She does walk at home and denies any syncope with ambulation. He was scheduled for a electric shovel operator appointment as outpatient. She denied any changes in her menstrual periods. She states her periods are fairly regular. She does have irregular bowel movements and has a episodes of constipation. Additionally she is able to ambulate but states she has episodes of imbalance in the past. Patient was previously seen on February 06, February 08 with [facility] ER secondary to syncope. Secondary to recurrent episodes; decision was made to admit patient to hospital by ER physician for further workup. Labs were notable for white count of 4.4, hemoglobin was 15.4, platelet count was 407 K sodium was 140, potassium was 3.4, creatinine was 0.[address] had a head CT done on 02/06/2025 which was negative REVIEW OF SYSTEMS CONSTITUTIONAL: Denies fevers, chills, or night sweats. No unintentional weight loss reported. NEUROLOGICAL: Denies headache, amaurosis fugax, motor weakness, sensory deficit, vertigo/spinning sensation, gait abnormalities, or tremors. For syncope ENT: No hearing loss, otalgia, otorrhea, rhinitis, rhinorrhea, hoarseness, or sore throat. CARDIOVASCULAR: Denies any exertional angina, dyspnea on exertion, orthopnea, paroxysmal nocturnal dyspnea, palpitations, life-threatening arrhythmias, c laudication. PULMONARY: Denies any shortness of breath, cough, phlegm/sputum, hemoptysis, pleuritic chest pain. SLEEP: Denies morning headaches, daytime somnolence or napping. Denies difficulty falling asleep, staying asleep, waking from sleep. Denies knowledge of snoring. GASTROINTESTINAL: Denies any type of dysphagia to either liquids or solids. Denies nausea, vomiting, pyrosis, early satiety, abdominal pain, diarrhea, or c hanges in stool consistency or caliber. Denies coffee-ground emesis, hematemesis, hematochezia, or melanotic stools. Positive for constipation GENITOURINARY: Denies frequency, urgency, nocturia, hematuria or incontinence (Storage/Irritative symptoms.) Low urinary stream, straining to void, urinary intermittency or hesitancy, splitting of the voiding stream, terminal dribbling. ENDOCRINOLOGIC: Denies polyuria, polydipsia, polyphagia or heat/cold into lerances. HEMATOLOGIC: Denies thrombophilia/previous clots, or coagulopathy/bleeding disorders. ONCOLOGIC: Denies personal history of malignancy. DERMATOLOGIC: Denies rashes or pruritus. PSYCHIATRIC: Denies any suicidal or homicidal ideation. Denies hallucinations. PAST MEDICAL HISTORY: PTSD, anxiety PAST SURGICAL HISTORY: History of PAST SOCIAL HISTORY: Denied any smoking, alcohol, drug use FAMILY HISTORY History of brain malignancy in patient's cousin. Patient's sibling has a history of renal disease Coded Allergies: No Known Allergies (Unverified Allergy, Unknown, 02/06/25) PHYSICAL EXAM GENERAL APPEARANCE: The patient is awake, alert, and oriented, in no acute cardiopulmonary distress. NEUROLOGICAL: Cranial nerves II-XII grossly intact. Motor is 5/5 in bilateral upper and lower extremities proximal to distal. No sensory deficits. HEENT: Face is symmetric. Pupils are equal and reactive. Extraocular movements are intact. NECK: Supple. No JVD. No thyromegaly. No submental, submandibular, pre- /postauricular, occipital or supraclavicular lymphadenopathy. CHEST: Normal chest expansion. No Telemetry. LUNGS: Absence of any rales, rhonchi or any wheezing. CARDIOVASCULAR: Regular. S1 and S2 normal. No appreciable rubs, murmurs or gallops. ABDOMEN: Soft, nontender, and nondistended. There is no rebound, voluntary guarding, or rigidity. : Deferred. No Lilly. EXTREMITIES: Non-edematous and not cyanotic. No clubbing. Good capillary refill. SKIN: No skin breakdown. Vital Sign (Last 24 Hours) 02/09/25 08:28 Temp 97.9 Pulse 64 Resp 18 B/P (MAP) 162/60 Pulse Ox 99 O2 Delivery Room Air* O2 Flow Rate 0 FiO2 21 LABS: Laboratory: Test 02/09/25 08:49 02/09/25 08:45 Range/Units White Blood Count 4.4 L 4.8-10.8 K/uL Red Blood Count 5.55 H 4.00-5.50 MIL/uL Hemoglobin 15.4 12.0-16.0 g/dL Hematocrit 46.3 36-48 % Mean Corpuscular Volume 83.4 79-99 fL Mean Corpuscular Hemoglobin 27.7 27.0-33.0 pg Mean Corpuscular Hemoglobin Concent 33.3 32.0-36.0 g/dL Red Cell Distribution Width 14.1 11.0-15.5 % Platelet Count 407 H 130-400 K/uL Mean Platelet Volume 9.2 7.5-10.5 fL Immature Granulocyte % (Auto) 0.2 0-1 % Neutrophils (%) (Auto) 55.2 40.0-77.0 % Lymphocytes (%) (Auto) 38.4 21.0-51.0 % Monocytes (%) (Auto) 4.6 3.0-13.0 % Eosinophils (%) (Auto) 0.9 0.0-8.0 % Basophils (%) (Auto) 0.7 0.0-5.0 % Neutrophils # (Auto) 2.4 1.8-7.7 K/uL Lymphocytes # (Auto) 1.7 1.0-4.8 K/uL Monocytes # (Auto) 0.2 0.1-1.0 K/uL Eosinophils # (Auto) 0.04 0.00-0.70 K/uL Basophils # (Auto) 0.03 0.00-0.20 K/uL Absolute Immature Granulocyte (auto 0.01 0-1 K/uL Nucleated Red Blood Cells 0.0 0.0-0.19 % Sodium Level 140 136-145 mmol/L Potassium Level 3.4 L 3.5-5.1 mmol/L Chloride Level 103 101-111 mmol/L Carbon Dioxide Level 23 21-32 mmol/L Blood Urea Nitrogen 8 7-18 mg/dL Creatinine 0.8 0.5-1.0 mg/dL Glomerular Filtration Rate Calc 104 >90 mL/min Random Glucose 98 70-105 mg/dL Hemoglobin A1c 5.3 4.0-6.0 % Estimated Average Glucose (eAG) 105 70-126 mg/dL Total Calcium 9.0 8.5-10.1 mg/dL Urine Color COLORLESS YELLOW Urine Appearance CLEAR CLEAR Urine pH 6.0 5.0-8.0 Urine Specific [place] 1.008 1.001-1.031 Urine Protein NEGATIVE NEGATIVE mg/dL Urine Glucose (UA) NEGATIVE NEGATIVE mg/dL Urine Ketones NEGATIVE NEGATIVE mg/dL Urine Occult Blood NEGATIVE NEGATIVE Urine Nitrate NEGATIVE NEGATIVE Urine Bilirubin NEGATIVE NEGATIVE mg/dL Urine Urobilinogen 0.2 0.2-1.0 mg/dL Urine Leukocyte Esterase NEGATIVE NEGATIVE [place]/uL Urine RBC 0-1 0-1 /HPF Urine WBC 0-1 0-1 /HPF Urine Squamous Epithelial Cells FEW 0-2 /HPF Urine Bacteria None None Seen /HPF Urine HCG, Qualitative NEGATIVE NEGATIVE Urine Opiates Screen NEGATIVE NEGATIVE Urine Barbiturates Screen NEGATIVE NEGATIVE Urine Phencyclidine Screen NEGATIVE NEGATIVE Urine Amphetamines Screen NEGATIVE NEGATIVE Urine Benzodiazepines Screen NEGATIVE NEGATIVE Urine Cocaine Screen NEGATIVE NEGATIVE Urine Marijuana (THC) Screen NEGATIVE NEGATIVE Current Medications Medications (Trade) Dose Ordered Sig/Veronika Route PRN Reason Start Time Stop Time Status Last Admin Dose Admin Famotidine (Pepcid 20mg Vial) 20 mg BID IV 02/09/25 21:00 03/11/25 20:59 Sodium Chloride 1,000 ml @ 75 mls/hr [id number] IV 02/09/25 11:00 03/11/25 10:59 DIAGNOSTICS / RADIOLOGY: He had showed no acute abnormality performed on 02/06 ASSESSMENT: Recurrent syncope differential cardiac versus neurological versus psychogenic History of PTSD History of anxiety Unintentional weight loss Constipation Mild thrombocytosis PLAN: - patient to be admitted to medical-surgical unit with telemetry -in reference to syncope. The patient will be monitored on telemetry. We will obtain a carotid ultrasound and echocardiogram. We will kindly request consultation with Cardiology. Patient will benefit from Holter monitor on discharge. We will also request consultation with Neurology for further evaluation. We will consider brain MRI depending on neurological recommendations. Hemoglobin was normal with mild thrombocytosis. We will ob tain a peripheral smear. -check vitamin B12, TSH, hemoglobin A1c -patient to be started on NS for gentle hydration. -we will consider psychiatric consultation depending on patient's clinical course. -obtain patient's home medications which will be reconciled once - patient will establishing with pcp clinic on discharge - Patient will undergo EGD and colonoscopy as outpt. Her Hgb is currently normal. Will closely monitor -further orders per hospitalization course Advanced Care Planning Which of the following were discussed: Hospice care: Yes __ No _x_ Therapeutic options: Yes __ No __ Advance directives: Yes __ No __ Other discussions: Discussed with who?: patient (Patient, family or surrogates) Voluntary nature of this service was explained to the patient? Yes x__ No __ Amount of time spent: 25 minutes PILY Goode MD, MD Feb 09, 2025 11:53
[2025-02-09] MEDS ORDERED: PoTASSium chl 10% ELIXIR 20MEQ 20 MEQ/15 ML UDCUP PO PRN (12:00)
[2025-02-09] MEDS: 0.9%NACL 1000ML 1,000 ML IV SCH (13:49)
[2025-02-09] MEDS: PoTASSium chloRIDE 20MEQ ER 20 MEQ ERTAB PO ONE (13:49)
[2025-02-09 16:03] LABS: CREATININE 0.8 mg/dL (0.5-1.0); GLOMERULAR FILTR. RATE CALC 104.0 mL/min (>90); GLUCOSE,RANDOM 100.0 mg/dL (70-105); SODIUM SERUM 140.0 mmol/L (136-145); UREA NITROGEN, BLOOD 8.0 mg/dL (7-18)
--- NOTE | 2025-02-09 16:04 | CONS ---
CONSULTATION NOTE Date of Service: Feb 09, 2025 Reason for Consultation: Evaluation of LOC events Requesting Physician: Hospitalist HISTORY OF PRESENT ILLNESS: Ms. Pastor is a 29-year-old right-handed female with a history of PTSD, anxiety, and depression presenting with recurrent syncopal episodes that began in May 2024. She experiences visual disturbances immediately prior to losing consciousness, describing that "it goes black and then I pass out." Today she saw squiggly lines, which she reports seeing frequently. The episodes are preceded by feeling dizzy and lightheaded, with whole body weakness. Her smoking pipe maker reports that during episodes she appears pale and her eyes "space out," but there are no jerking movements of arms or legs, stiffness, tongue- biting, urinary incontinence, or bowel movements. Upon awakening, she feels confused and disoriented but not extremely tired. The patient reports no specific triggers for these episodes, and they do not feel like anxiety attacks. She denies vomiting with the episodes but has experienced some nausea when getting up. She notes that when straining during bowel movements, her vision "starts to go black" but she has not passed out during these instances. Her smoking pipe maker reports she did vomit on Thursday morning when she passed out. The patient occasionally experiences abdominal pain before passing out but not consistently. She has been experiencing significant gastrointestinal symptoms including frequent burping every time she eats, describing her stomach as feeling acidic and requiring her to burp constantly, even when drinking water. She reports being somewhat constipated and sometimes strains when using the bathroom. She denies seeing blood in her stool but notes blood when wiping, which was previously attributed to a possible tear by providers in [place] who recommended suppositories if pain persisted. She denies dark black stools except when taking iron supplements. Her blood pressure has been on the lower side, with a reading of 90/80 yesterday morning, which she notes is unusual as it would typically be around 90/50-60. Her heart rate remains normal currently, staying in the eighties. She had a panic attack approximately six weeks ago during which her heart rate reached 160-170 beats per minute, which normalized over the following week. The patient recently moved to live with her parents and is seeking a new psychiatrist, having previously had one where she used to live. She saw a administrative supervisor yesterday and has a colonoscopy and endoscopy scheduled for Thursday. Medical History - PTSD - anxiety - Depression Medications and Supplements - Iron supplements - Caused dark black stools Social History - Living Situation: Currently living with parents after relocating from previous residence - Mental Health Support: Previously had a psychiatrist in former location, currently seeking new psychiatric care REVIEW OF SYSTEMS General: Positive for weakness. Gastrointestinal: Positive for constipation, nausea, excessive burping, and acidic stomach sensation. Negative for vomiting and abdominal pain. Neurological: Positive for visual disturbances including blackout vision and squiggly lines, dizziness, lightheadedness, confusion, and disorientation. Negative for jerking movements, stiffness, tongue biting, incontinence, and extreme fatigue. PAST MEDICAL HISTORY: as above PAST SURGICAL HISTORY: as above PAST SOCIAL HISTORY: as above FAMILY HISTORY: none Coded Allergies: No Known Allergies (Unverified Allergy, Unknown, 02/06/25) PHYSICAL EXAM EYES: Anicteric. Pupils equal and reactive. HENT: No oral thrush seen, moist Oral mucosa NECK: Supple, no JVD or thyromegaly. LUNGS: Good air entry. No rales, no rhonchi. CARDIOVASCULAR: S1, S2 regular. No murmur heard. ABDOMEN: Soft, non tender, bowel sounds present, no organomegaly CENTRAL NERVOUS SYSTEM: Awake, alert, oriented x 3. No focal deficits. SKIN: No rashes, no swelling. LYMPHATICS: No peripheral lymphadenopathy MUSCULOSKELETAL: No joint swelling, erythema or tenderness. EXTREMITIES: No cyanosis or clubbing BACK: No deformity, no pressure ulcer. GENITOURINARY: nausea Vital Sign (Last 24 Hours) 02/09/25 13:55 Temp 98.1 Pulse 84 Resp 20 B/P (MAP) 100/58 Pulse Ox 98 O2 Delivery Room Air* O2 Flow Rate 0 FiO2 21 LABS: Laboratory: Test 02/09/25 08:49 02/09/25 08:45 Range/Units White Blood Count 4.4 L 4.8-10.8 K/uL Red Blood Count 5.55 H 4.00-5.50 MIL/uL Hemoglobin 15.4 12.0-16.0 g/dL Hematocrit 46.3 36-48 % Mean Corpuscular Volume 83.4 79-99 fL Mean Corpuscular Hemoglobin 27.7 27.0-33.0 pg Mean Corpuscular Hemoglobin Concent 33.3 32.0-36.0 g/dL Red Cell Distribution Width 14.1 11.0-15.5 % Platelet Count 407 H 130-400 K/uL Mean Platelet Volume 9.2 7.5-10.5 fL Immature Granulocyte % (Auto) 0.2 0-1 % Neutrophils (%) (Auto) 55.2 40.0-77.0 % Lymphocytes (%) (Auto) 38.4 21.0-51.0 % Monocytes (%) (Auto) 4.6 3.0-13.0 % Eosinophils (%) (Auto) 0.9 0.0-8.0 % Basophils (%) (Auto) 0.7 0.0-5.0 % Neutrophils # (Auto) 2.4 1.8-7.7 K/uL Lymphocytes # (Auto) 1.7 1.0-4.8 K/uL Monocytes # (Auto) 0.2 0.1-1.0 K/uL Eosinophils # (Auto) 0.04 0.00-0.70 K/uL Basophils # (Auto) 0.03 0.00-0.20 K/uL Absolute Immature Granulocyte (auto 0.01 0-1 K/uL Nucleated Red Blood Cells 0.0 0.0-0.19 % Sodium Level 140 136-145 mmol/L Potassium Level 3.4 L 3.5-5.1 mmol/L Chloride Level 103 101-111 mmol/L Carbon Dioxide Level 23 21-32 mmol/L Blood Urea Nitrogen 8 7-18 mg/dL Creatinine 0.8 0.5-1.0 mg/dL Glomerular Filtration Rate Calc 104 >90 mL/min Random Glucose 98 70-105 mg/dL Hemoglobin A1c 5.3 4.0-6.0 % Estimated Average Glucose (eAG) 105 70-126 mg/dL Total Calcium 9.0 8.5-10.1 mg/dL Total Bilirubin 0.8 0.2-1.0 mg/dL Direct Bilirubin 0.1 0.0-0.3 mg/dL Aspartate Amino Transf (AST/SGOT) 14 10-37 U/L Alanine Aminotransferase (ALT/SGPT) 16 12-78 U/L Alkaline Phosphatase 50 50-136 U/L Total Protein 7.5 6.0-8.3 g/dL Albumin 4.1 3.5-5.0 g/dL Vitamin B12 Level 376 193-986 pg/mL Thyroid Stimulating Hormone (TSH) 1.69 0.36-3.74 uIU/mL Urine Color COLORLESS YELLOW Urine Appearance CLEAR CLEAR Urine pH 6.0 5.0-8.0 Urine Specific [place] 1.008 1.001-1.031 Urine Protein NEGATIVE NEGATIVE mg/dL Urine Glucose (UA) NEGATIVE NEGATIVE mg/dL Urine Ketones NEGATIVE NEGATIVE mg/dL Urine Occult Blood NEGATIVE NEGATIVE Urine Nitrate NEGATIVE NEGATIVE Urine Bilirubin NEGATIVE NEGATIVE mg/dL Urine Urobilinogen 0.2 0.2-1.0 mg/dL Urine Leukocyte Esterase NEGATIVE NEGATIVE [place]/uL Urine RBC 0-1 0-1 /HPF Urine WBC 0-1 0-1 /HPF Urine Squamous Epithelial Cells FEW 0-2 /HPF Urine Bacteria None None Seen /HPF Urine HCG, Qualitative NEGATIVE NEGATIVE Urine Opiates Screen NEGATIVE NEGATIVE Urine Barbiturates Screen NEGATIVE NEGATIVE Urine Phencyclidine Screen NEGATIVE NEGATIVE Urine Amphetamines Screen NEGATIVE NEGATIVE Urine Benzodiazepines Screen NEGATIVE NEGATIVE Urine Cocaine Screen NEGATIVE NEGATIVE Urine Marijuana (THC) Screen NEGATIVE NEGATIVE DIAGNOSTICS / RADIOLOGY: [ ] ASSESSMENT / PLAN: Ms. Pastor is a 29-year-old female with a history of PTSD, anxiety, and depression presenting with recurrent syncopal episodes since May preceded by visual disturbances. Recurrent vasovagal syncope Assessment: Patient presents with recurrent syncopal episodes since May characterized by visual disturbances including blackout vision and squiggly lines preceding loss of consciousness. Episodes are associated with weakness, pallor, and post-ictal confusion and disorientation but without jerking movements, tongue biting, incontinence, or prolonged fatigue. Blood pressure noted to be low at 90/80 with normal heart rate in the 80s. Episodes occur with straining during bowel movements and are associated with excessive burping after eating and drinking. Clinical presentation is most consistent with vasovagal syncope triggered by autonomic reflex, likely related to gastrointestinal symptoms causing vagal stimulation. Does not appear consistent with seizure activity based on clinical description and lack of typical post-ictal features. Plan: - Gastroenterology evaluation with colonoscopy and endoscopy scheduled for Thursday to address underlying gastrointestinal symptoms - Address stomach problems to reduce vagal stimulation and prevent autonomic reflex causing syncope Gastrointestinal symptoms Assessment: Patient reports constipation with straining during bowel movements and rectal bleeding noted only on wiping, previously attributed to anal fissure. Experiencing excessive burping after eating and drinking with acidic stomach sensation and nausea upon standing. These gastrointestinal symptoms appear to be triggering vagal reflex contributing to syncopal episodes. Plan: - Gastroenterology evaluation with colonoscopy and endoscopy scheduled for Thursday PTSD, anxiety, depression Assessment: Patient has established psychiatric history including PTSD, anxiety, and depression. Previously had psychiatric care but currently without provider after relocating to live with parents. Had panic attack episode approximately 6 weeks ago with heart rate reaching 160-170 bpm that resolved over one week. Current syncopal episodes are distinct from anxiety attacks. Plan: - Patient seeking new psychiatrist for ongoing psychiatric care Thank you for your consultation. I will sign off BRIANNA SULLIVAN MD Feb 09, 2025 16:04
--- NOTE | 2025-02-09 16:20 | NUR ---
DCP:HOME Pt is currently going to be living with her parents in their home. Pt states that she just moved from [place] on Thursday. Pt states that she receives $239 in [place] food stamps. Pt denies any DME, home health, and providers. Pt states that she is able to complete ADLs independently. PCP is Dr Soto and uses [facility] for any RX needs. At [place] pt will want to go home and family can assist with transportation.
--- NOTE | 2025-02-09 18:05 | HMCSR ---
APPROVED REPORT EXAM: Two-dimensional and M-mode echocardiogram with Doppler and color Doppler. INDICATION ICD: Syncope R55 2D Dimensions RVDd 3.5 cm LVEF(%) 54.9 (>50%) LVED Vol(simp.) 70.0 mL IVSd 0.6 (0.7-1.1cm) FS(%) 28 % LVES Vol(simp.) 27.0 mL LVDd 3.8 (3.8-5.6cm) LA (2D) 2.9 (1.6-4.0cm) LVEF(%, simp.) 61 % PWd 0.6 (0.7-1.1cm) Ao Root(2D) 2.6 (2.0-3.7cm) LA ESV INDEX (BP) 11.91 mL/m2 IVSs 0.8 cm LVOT diam 1.9 (1.8-2.4cm) LVDs 2.7 (2.5-4.0cm) IVC diam 1.6 cm PWs 1.3 cm Deformation Strain Apical 4 -20.2 % Apical 2 -19.9 % Apical 3 -16.7 % Global Strain -18.9 % M-Mode Dimensions EPSS 0.3 cm LA (MM) 2.9 (1.6-4.0cm) Ao Root(MM) 2.8 (2.0-3.7cm) Aortic Valve AoV Vmax 1.0 m/s Ao Peak GR 3.9 mmHg LVOT Vmax 0.9 m/s AoV VTI 0.2 m Ao Mean GR 2.6 mmHg LVOT VTI 0.15 m JOI (VMAX) 2.66 cm2 JOI (VTI) 2.5 cm2 Mitral Valve MV E Vmax 61.3 cm/s DECEL Time 181 ms MV A Vmax 45.2 cm/s P 1/2 T 46 ms E/A ratio 1.4 MVA (PHT) 4.8 cm2 TDI E/E' Medial 5.5 E/E' Lateral 4.5 Medial E' Peak V 11.09 cm/s Lateral E' Peak V 13.57 cm/s Pulmonary Valve PV Vmax 0.9 m/s PV Mean GR 1.8 mmHg PV Peak GR 3.1 mmHg Tricuspid Valve TR Vmax 1.8 m/s RAP (EST) 3 mmHg RVSP 16.3 mmHg TR Peak GR 13.3 mmHg Left Ventricle The left ventricle is normal size. There is normal LV segmental wall motion. There is normal left ventricular wall thickness. LVEF is 60-65%. The left ventricular diastolic function is normal. Right Ventricle The right ventricle is normal size. The right ventricular systolic function is normal. Atria The left atrium size is normal. The right atrium size is normal. Aortic Valve The aortic valve is normal in structure. No aortic regurgitation is present. There is no aortic valvular stenosis. Mitral Valve The mitral valve is normal in structure. There is trace mitral valve regurgitation noted. There is no mitral valve stenosis. Tricuspid Valve The tricuspid valve is normal in structure. There is trace of tricuspid valve regurgitation noted. Pulmonic Valve Pulmonic valve is not well visualized. There is no pulmonic valvular regurgitation. Great Vessels The aortic root is normal in size. The IVC is normal in size and collapses >50% with inspiration. Pericardium There is no pericardial effusion. Other Information Quality : Adequate Conclusion The left ventricle is normal size. LVEF is 60-65% with normal LV segmental wall motion. The left ventricular diastolic function is normal. The right ventricular systolic function is normal. Both atria are normal in size. No hemodynamically significant valvular abnormalities. There is no pericardial effusion.
--- NOTE | 2025-02-09 18:06 | CONS ---
[facility] CARDIOLOGY CONSULTATION NOTE Date Patient Seen: Feb 09, 2025 Time of Visit: 17:56 Reason for Consultation: [Syncope ] History of Present Illness: [29-year-old female patient with no significant cardiovascular medical history, aside from anxiety, PTSD , who presented to the hospital's emergency department endorsing an episode of syncope, off note the patient has syncopal events have become more frequent since May of 2024, with underlying worsening PTSD, she has recently moved to the [facility] (4-5 days ago), her syncopal events are noted without any seizure-like activity, witnessed by her mother, with no loss of bowel or urinary continence, the patient is currently assessed at her bedside, she denies any current chest pain, palpitations, dyspnea or any other anginal equivalents, noted to be anxious. Presenting ECG sinus rhythm with no acute ST-T wave abnormalities, head CT was unremarkable, UDS was negative, TSH 1.69, A1c 5.3%, hemoglobin 15 g, review of telemetry shows heart rate of 88 beats per minute, with a blood pressure of 100/58mmhg. Cardiology was consulted for syncope ] Past Medical History: [Refer to chart ] Past Surgical History: [Refer to HPI ] Family History: [Refer to HPI ] Social History: [Refer to HPI ] Habits: [Never] smoker. [Denies] alcohol consumption. [Denies] illicit drug use Review of Systems: A review of12 point systems was negative set per HPI Physical Examination: GENERAL: [No acute distress.] HEAD: [Normal with no signs of head trauma.] EYES: [PERRLA, EOMI, conjunctiva and sclera normal.] ENT: [Hearing grossly intact, normal oropharynx.] NECK: [Supple without JVD. There is no tenderness, lymphadenopathy, or masses. No thyromegaly. Normal carotid upstrokes without bruits.] LUNGS: [Clear breath sounds bilaterally. No wheezes, or rhonchi.] HEART: [Normal rate and rhythm. Normal S1 and S2 without murmurs, gallop or rub.] VASC: [Peripheral pulses +2 bilaterally.] ABD: [Bowel sounds normal, soft, nontender, no masses, no organomegaly. No audible bruits.] : [Not examined] LYMPH: [No lymphadenopathy noted.] EXT: [No clubbing, cyanosis or edema.] SKIN: [No rashes or lesions noted.] NEURO: [Awake, alert, and oriented x3. No focal sensory or strength deficits noted.] Vital Signs (last 8hr) Date Time Temp Pulse Resp B/P (MAP) Pulse Ox O2 Delivery O2 Flow Rate FiO2 02/09/25 13:55 98.1 84 20 100/58 98 Room Air* 0 21 Laboratory: [ ] Hematology Labs: Test 02/09/25 08:49 Range/Units White Blood Count 4.4 L 4.8-10.8 K/uL Red Blood Count 5.55 H 4.00-5.50 MIL/uL Hemoglobin 15.4 12.0-16.0 g/dL Hematocrit 46.3 36-48 % Mean Corpuscular Volume 83.4 79-99 fL Mean Corpuscular Hemoglobin 27.7 27.0-33.0 pg Mean Corpuscular Hemoglobin Concent 33.3 32.0-36.0 g/dL Red Cell Distribution Width 14.1 11.0-15.5 % Platelet Count 407 H 130-400 K/uL Mean Platelet Volume 9.2 7.5-10.5 fL Immature Granulocyte % (Auto) 0.2 0-1 % Neutrophils (%) (Auto) 55.2 40.0-77.0 % Lymphocytes (%) (Auto) 38.4 21.0-51.0 % Monocytes (%) (Auto) 4.6 3.0-13.0 % Eosinophils (%) (Auto) 0.9 0.0-8.0 % Basophils (%) (Auto) 0.7 0.0-5.0 % Neutrophils # (Auto) 2.4 1.8-7.7 K/uL Lymphocytes # (Auto) 1.7 1.0-4.8 K/uL Monocytes # (Auto) 0.2 0.1-1.0 K/uL Eosinophils # (Auto) 0.04 0.00-0.70 K/uL Basophils # (Auto) 0.03 0.00-0.20 K/uL Absolute Immature Granulocyte (auto 0.01 0-1 K/uL Nucleated Red Blood Cells 0.0 0.0-0.19 % Chemistry Labs: Test 02/09/25 15:42 02/09/25 08:49 Range/Units Sodium Level 140 136-145 mmol/L Potassium Level 3.7 3.5-5.1 mmol/L Chloride Level 106 101-111 mmol/L Carbon Dioxide Level 21 21-32 mmol/L Blood Urea Nitrogen 8 7-18 mg/dL Creatinine 0.8 0.5-1.0 mg/dL Glomerular Filtration Rate Calc 104 >90 mL/min Random Glucose 100 70-105 mg/dL Total Calcium 9.0 8.5-10.1 mg/dL Hemoglobin A1c 5.3 4.0-6.0 % Estimated Average Glucose (eAG) 105 70-126 mg/dL Total Bilirubin 0.8 0.2-1.0 mg/dL Direct Bilirubin 0.1 0.0-0.3 mg/dL Aspartate Amino Transf (AST/SGOT) 14 10-37 U/L Alanine Aminotransferase (ALT/SGPT) 16 12-78 U/L Alkaline Phosphatase 50 50-136 U/L Total Protein 7.5 6.0-8.3 g/dL Albumin 4.1 3.5-5.0 g/dL Vitamin B12 Level 376 193-986 pg/mL Thyroid Stimulating Hormone (TSH) 1.69 0.36-3.74 uIU/mL Diagnostics / Radiology: [Copy/Paste Echos/Imaging Report here] Assessment: [Anxiety PTSD ] Plan: [#syncope Patient is endorsing several episodes of syncopal events since May of 2024 With a underlying worsening PTSD/anxiety Her syncopal events were witnessed by her mother, which states no seizure-like activity, loss of bowel or urinary continence While in the ER the patient did have another syncopal event she recovered consciousness 1-2 minutes Upon further interrogation the patient states that her anxiety and PTSD can trigger her syncopal events Her presenting ECG with sinus rhythm with no acute ST-T wave changes UDS was negative, TSH 1.6, A1c 5.3%, hemoglobin 15, head CT was unremarkable Patient currently denies any chest pain, palpitations, dyspnea or any other anginal equivalents She denies any prior history of Myocardial infarction/CAD/stroke, with no family history of premature CAD At this time there is a concern that her syncopal events are driven by her underlying anxiety and PTSD vs vasovagal We will order a baseline 2D echocardiogram to assess systolic and valvular function we will order one troponin and BNP We will check orthostatics every12 hours if positive administer 250 mL of normal saline x1 IV We will keep the patient on telemetry, monitoring/replace electrolytes as needed ] Thank you for this consult cardiology will continue along, formal recommendations pending 2D echocardiogram and orthostatic results Niranjan cortez MD ATTESTATION BY PHYSICIAN I have seen and examined the patient, reviewed the above documentation, participated in medical decision making, made necessary modifications, and agree with the treatment plan as documented by my mid-level provider above. MD MATT Mcdowell JAMES R MD Feb 09, 2025 18:06
[2025-02-09] MEDS: FAMOTIDINE 20MG VIAL IV SCH (22:20)
--- NOTE | 2025-02-09 22:29 | NUR ---
REFER TO VITAL SIGN DOCUMENTATION FOR ORTHOSTATIC VITAL SIGNS DONE ORDERED.
--- NOTE | 2025-02-09 22:41 | NUR ---
REPORT GIVEN TO KIMBERLY CRAMER AT THIS TIME
[2025-02-09 22:55] VITALS: O2SAT 99
--- NOTE | 2025-02-09 22:55 | NUR ---
PT ARRIVED TO ROOM 424 FROM ER VIA WHEELCHAIR. PT TRANSFERRED TO BED WELL TOLERATED. ORIENTATED PT TO ROOM AND INSTRUCTED TO USE CALL LIGHT BEFORE GETTING UP OR IF THEY NEED ANYTHING, VERBALIZED UNDERSTANDING. LEFT BED LOW, LOCKED, RAILS UPX2, AND CALL LIGHT IN REACH.
[2025-02-09 23:03] VITALS: BP 98/66; PULSE 61; RESP 20; TEMP 97.8
[2025-02-09 23:05] VITALS: BP 108/72; PULSE 90; RESP 22; TEMP 97.8
[2025-02-09 23:08] VITALS: BP 103/79; PULSE 95; RESP 20; TEMP 97.8
[2025-02-10] VITALS (10 sets, daily range): BP systolic 92–124; BP diastolic 57–79; PULSE 67–110; RESP 14–18; TEMP 95.9–98.2; O2SAT 96
[2025-02-10] MEDS ORDERED: FAMO-136 PO ×2 (00:26)
[2025-02-10] MEDS ORDERED: LINA290C PO ×2 (00:26)
[2025-02-10 04:50] LABS: IMMATURE GRANULOCYTE ABSOLUTE 0.01 K/uL (0-1); NUCLEATED RED BLOOD CELLS 0.0 % (0.0-0.19); PLATELET COUNT (AUTO) 357 K/uL (130-400); RED BLOOD CELL COUNT(AUTO) 4.53 MIL/uL (4.00-5.50); RED CELL DISTRIBUTION WIDTH 14.0 % (11.0-15.5); WHITE BLOOD COUNT (AUTO) 6.6 K/uL (4.8-10.8)
--- NOTE | 2025-02-10 06:10 | HMCIMG ---
EXAMINATION: DUPLEX ULTRASOUND EXAMINATION OF THE BILATERAL CAROTID AND VERTEBRAL ARTERIES. CLINICAL HISTORY: Syncope. COMPARISON: CT head without contrast dated 02/06/2025. TECHNIQUE: Real-time ultrasound scan of the bilateral carotid and vertebral arteries, 2-D grayscale, with color Doppler flow and spectral waveform analysis. FINDINGS: Color and spectral Doppler interrogation of the carotid vessels on the right demonstrate peak systolic velocities as follows: CCA (Proximal and distal): 141 and 129 cm/s respectively. ECA: 90 cm/s. ICA (Proximal, mid, and distal): 113, 108, and 90 cm/s respectively. Vertebral artery demonstrates antegrade flow: 59 cm/s. Right ICA/CCA ratio: 0.9 Peak systolic velocities on the left are as follows: CCA (Proximal and distal): 157 and 102 cm/s respectively. ECA: 106 cm/s. ICA (Proximal, mid, and distal): 114, 69, and 85 cm/s respectively. Vertebral artery demonstrates antegrade flow: 48 cm/s. Left ICA/CCA ratio: 1.1 IMPRESSION: There is no significant stenosis or flow limiting lesions. /[place]
[2025-02-10 07:37] LABS: CREATININE 0.7 mg/dL (0.5-1.0); GLOMERULAR FILTR. RATE CALC 121.0 mL/min (>90); GLUCOSE,RANDOM 102.0 mg/dL (70-105); SODIUM SERUM 141.0 mmol/L (136-145); UREA NITROGEN, BLOOD 9.0 mg/dL (7-18)
[2025-02-10] MEDS: (Linaclotide (Linzess) 1 CAP) PO SCH (09:00)
--- NOTE | 2025-02-10 09:07 | PN ---
[facility] CARDIOLOGY PROGRESS NOTE Date Patient Seen: Feb 10, 2025 Time of Visit: 09:00 Interval History: [no acute evetns overnight , no atrial / ventricular arrhythmias were noted on telemetry , the patient denies any cardiac symptoms or anginal equivalents , no further syncopal events , 2Decho revealed EF 60-65 % with no wall motion or valvular abnormalities. ] Physical Examination: GENERAL: [No acute distress.] HEAD: [Normal with no signs of head trauma.] EYES: [PERRLA, EOMI, conjunctiva and sclera normal.] ENT: [Hearing grossly intact, normal oropharynx.] NECK: [Supple without JVD. There is no tenderness, lymphadenopathy, or masses. No thyromegaly. Normal carotid upstrokes without bruits.] LUNGS: [Clear breath sounds bilaterally. No wheezes, or rhonchi.] HEART: [Normal rate and rhythm. Normal S1 and S2 without murmurs, gallop or rub.] VASC: [Peripheral pulses +2 bilaterally.] ABD: [Bowel sounds normal, soft, nontender, no masses, no organomegaly. No audible bruits.] : [Not examined] LYMPH: [No lymphadenopathy noted.] EXT: [No clubbing, cyanosis or edema.] SKIN: [No rashes or lesions noted.] NEURO: [Awake, alert, and oriented x3. No focal sensory or strength deficits noted.] Laboratory: [ ] Hematology Labs: Test 02/10/25 04:20 Range/Units White Blood Count 6.6 # 4.8-10.8 K/uL Red Blood Count 4.53 4.00-5.50 MIL/uL Hemoglobin 12.8 12.0-16.0 g/dL Hematocrit 37.4 36-48 % Mean Corpuscular Volume 82.6 79-99 fL Mean Corpuscular Hemoglobin 28.3 27.0-33.0 pg Mean Corpuscular Hemoglobin Concent 34.2 32.0-36.0 g/dL Red Cell Distribution Width 14.0 11.0-15.5 % Platelet Count 357 130-400 K/uL Mean Platelet Volume 9.3 7.5-10.5 fL Immature Granulocyte % (Auto) 0.2 0-1 % Neutrophils (%) (Auto) 52.3 40.0-77.0 % Lymphocytes (%) (Auto) 39.6 21.0-51.0 % Monocytes (%) (Auto) 6.1 3.0-13.0 % Eosinophils (%) (Auto) 1.2 0.0-8.0 % Basophils (%) (Auto) 0.6 0.0-5.0 % Neutrophils # (Auto) 3.4 1.8-7.7 K/uL Lymphocytes # (Auto) 2.6 1.0-4.8 K/uL Monocytes # (Auto) 0.4 0.1-1.0 K/uL Eosinophils # (Auto) 0.08 0.00-0.70 K/uL Basophils # (Auto) 0.04 0.00-0.20 K/uL Absolute Immature Granulocyte (auto 0.01 0-1 K/uL Nucleated Red Blood Cells 0.0 0.0-0.19 % Chemistry Labs: Test 02/10/25 07:03 02/09/25 15:43 02/09/25 15:42 02/09/25 08:49 Range/Units Sodium Level 141 136-145 mmol/L Potassium Level 3.7 3.5-5.1 mmol/L Chloride Level 106 101-111 mmol/L Carbon Dioxide Level 22 21-32 mmol/L Blood Urea Nitrogen 9 7-18 mg/dL Creatinine 0.7 0.5-1.0 mg/dL Glomerular Filtration Rate Calc 121 >90 mL/min Random Glucose 102 70-105 mg/dL Total Calcium 8.5 8.5-10.1 mg/dL B-Type Natriuretic Peptide < 5 0-100 pg/mL Troponin I High Sensitivity < 4 L 4-50 ng/L Hemoglobin A1c 5.3 4.0-6.0 % Estimated Average Glucose (eAG) 105 70-126 mg/dL Total Bilirubin 0.8 0.2-1.0 mg/dL Direct Bilirubin 0.1 0.0-0.3 mg/dL Aspartate Amino Transf (AST/SGOT) 14 10-37 U/L Alanine Aminotransferase (ALT/SGPT) 16 12-78 U/L Alkaline Phosphatase 50 50-136 U/L Total Protein 7.5 6.0-8.3 g/dL Albumin 4.1 3.5-5.0 g/dL Vitamin B12 Level 376 193-986 pg/mL Thyroid Stimulating Hormone (TSH) 1.69 0.36-3.74 uIU/mL Diagnostics / Radiology: [Copy/Paste Echos/Imaging Report here] Impression and Plan: [Anxiety PTSD ] Plan: [#Vaso vagal syncope Patient is endorsing several episodes of syncopal events since May of 2024 With a underlying worsening PTSD/anxiety Her syncopal events were witnessed by her mother, which states no seizure-like activity, loss of bowel or urinary continence While in the ER the patient did have another syncopal event she recovered consciousness 1-2 minutes Upon further interrogation the patient states that her anxiety and PTSD can trigger her syncopal events Her presenting ECG with sinus rhythm with no acute ST-T wave changes UDS was negative, TSH 1.6, A1c 5.3%, hemoglobin 15, head CT was unremarkable She denies any prior history of Myocardial infarction/CAD/stroke, with no family history of premature CAD At this time there is a concern that her syncopal events are driven by her underlying anxiety and PTSD vs vasovagal No atrial / ventricular arrhythmias were noted on telemetry The patient denies any cardiac symptoms or anginal equivalents , no further syncopal events 2Decho revealed EF 60-65 % with no wall motion or valvular abnormalities From the cardiac standpoint we consider she has vaso vagal syncope in the settin g of severe PTSD / anxiety She is pending GI evaluation due to severe indigestion. We will continue to monitor on telemetry , we will plan for an outpatient event monitor Niranjan cortez MD ] ATTESTATION BY PHYSICIAN I have seen and examined the patient, reviewed the above documentation, participated in medical decision making, made necessary modifications, and agree with the treatment plan as documented by my mid-level provider above. MD MATT Mcdowell JAMES R MD Feb 10, 2025 09:07
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
[2025-02-10] MEDS ORDERED: 0.9%NACL 1000ML 1,000 ML IV SCH (12:30)
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
--- NOTE | 2025-02-10 12:58 | CONS ---
GASTROENTEROLOGY CONSULTATION NOTE Date of Consultation: Feb 10, 2025 Time of Consultation: 12:58 History of Present Illness: This is a 29-year-old female with past medical history of PTSD, anxiety who presented due to syncope. She reported nonspecific abdominal pain and bloody stools. She had been scheduled for outpatient EGD and colonoscopy. Cardiology was consulted due to syncope. LFTs normal. Hemoglobin is stable. She is pending a CT abdomen. Review of Systems: CONSTITUTIONAL: No malaise or change in sensation of wellbeing. ENMT: No rhinorrhea, otorrhea, sinus pain, ear ache. CARDIOVASCULAR: No angina, palpitations, orthopnea or paroxysmal dyspnea. RESPIRATORY: No SOB. GASTROINTESTINAL: No abdominal pain, nausea, vomiting, diarrhea, hematemesis, melena or change in the patient's habitual bowel movements consistency/number. GENITOURINARY: No dysuria, hematuria or change in bladder continence. MUSCULOSKELETAL: No new muscle pain or decrease in muscular strength. No new joint swelling, redness or tenderness. SKIN: No new rash. Past Medical History: PAST MEDICAL HISTORY: PTSD, anxiety PAST SURGICAL HISTORY: History of PAST SOCIAL HISTORY: Denied any smoking, alcohol, drug use FAMILY HISTORY History of brain malignancy in patient's cousin. Patient's sibling has a history of renal disease Coded Allergies: No Known Allergies (Unverified Allergy, Unknown, 02/06/25) Coded Allergies: strawberry (Unverified Allergy, Severe, HIVES, 02/09/25) banana (Unverified Allergy, Intermediate, TINGLING MOUTH, 02/09/25) No Known Allergies (Unverified Allergy, Unknown, 02/06/25) Physical Exam: GEN: Awake, alert, oriented in person, time and place, and in no acute distress. HEENT: No sinus tenderness. Tympanic membranes were not examined. No rhinorrhea. Oral pharyngeal mucosa is pink, moist and within normal limits. Neck is supple with no cervical lymphadenopathy, thyromegaly or JVD. CHEST: Inspection, palpation and percussion of the chest were unremarkable. Lung auscultation revealed normal breath sounds bilaterally. CARDIAC: PMI is within normal limits. Heart sounds are regular. Normal S1, S2. No gallop or murmur. ABD: Soft, non-tender and not distended. No peritoneal signs on palpation. No organomegaly. Normal bowel sounds. EXT: No cyanosis or clubbing. No edema. SKIN: Intact. No rashes. JOINTS: No evidence of synovitis or acute arthritis. NEURO: Alert and oriented to name, place and person. Cranial nerve examination is unremarkable. No focal motor deficits. Normal speech. Gait is normal. Strength is normal. Vital Sign (Last 24 Hours) 02/09/25 02/10/25 22:55 08:33 Temp 95.9 Pulse 86 Resp 14 B/P (MAP) 104/71 Pulse Ox 96 O2 Delivery Room Air O2 Flow Rate 0 FiO2 21 Intake & Output (last 24hrs) 02/09/25 02/09/25 02/10/25 15:00 23:00 07:00 Intake Total 975.0 ml Output Total 400 ml Balance 575.0 ml Laboratory: [ ] Laboratory: Test 02/10/25 08:27 02/10/25 07:03 02/10/25 04:20 02/09/25 15:43 Range/Units Lactic Acid Level 1.3 0.8-2.5 mmol/L Lipase 41 16-77 U/L Sodium Level 141 136-145 mmol/L Potassium Level 3.7 3.5-5.1 mmol/L Chloride Level 106 101-111 mmol/L Carbon Dioxide Level 22 21-32 mmol/L Blood Urea Nitrogen 9 7-18 mg/dL Creatinine 0.7 0.5-1.0 mg/dL Glomerular Filtration Rate Calc 121 >90 mL/min Random Glucose 102 70-105 mg/dL Total Calcium 8.5 8.5-10.1 mg/dL White Blood Count 6.6 # 4.8-10.8 K/uL Red Blood Count 4.53 4.00-5.50 MIL/uL Hemoglobin 12.8 12.0-16.0 g/dL Hematocrit 37.4 36-48 % Mean Corpuscular Volume 82.6 79-99 fL Mean Corpuscular Hemoglobin 28.3 27.0-33.0 pg Mean Corpuscular Hemoglobin Concent 34.2 32.0-36.0 g/dL Red Cell Distribution Width 14.0 11.0-15.5 % Platelet Count 357 130-400 K/uL Mean Platelet Volume 9.3 7.5-10.5 fL Immature Granulocyte % (Auto) 0.2 0-1 % Neutrophils (%) (Auto) 52.3 40.0-77.0 % Lymphocytes (%) (Auto) 39.6 21.0-51.0 % Monocytes (%) (Auto) 6.1 3.0-13.0 % Eosinophils (%) (Auto) 1.2 0.0-8.0 % Basophils (%) (Auto) 0.6 0.0-5.0 % Neutrophils # (Auto) 3.4 1.8-7.7 K/uL Lymphocytes # (Auto) 2.6 1.0-4.8 K/uL Monocytes # (Auto) 0.4 0.1-1.0 K/uL Eosinophils # (Auto) 0.08 0.00-0.70 K/uL Basophils # (Auto) 0.04 0.00-0.20 K/uL Absolute Immature Granulocyte (auto 0.01 0-1 K/uL Nucleated Red Blood Cells 0.0 0.0-0.19 % B-Type Natriuretic Peptide < 5 0-100 pg/mL Test 02/09/25 15:42 02/09/25 08:49 02/09/25 08:45 Range/Units Troponin I High Sensitivity < 4 L 4-50 ng/L Hemoglobin A1c 5.3 4.0-6.0 % Estimated Average Glucose (eAG) 105 70-126 mg/dL Total Bilirubin 0.8 0.2-1.0 mg/dL Direct Bilirubin 0.1 0.0-0.3 mg/dL Aspartate Amino Transf (AST/SGOT) 14 10-37 U/L Alanine Aminotransferase (ALT/SGPT) 16 12-78 U/L Alkaline Phosphatase 50 50-136 U/L Total Protein 7.5 6.0-8.3 g/dL Albumin 4.1 3.5-5.0 g/dL Vitamin B12 Level 376 193-986 pg/mL Thyroid Stimulating Hormone (TSH) 1.69 0.36-3.74 uIU/mL Urine Color COLORLESS YELLOW Urine Appearance CLEAR CLEAR Urine pH 6.0 5.0-8.0 Urine Specific [place] 1.008 1.001-1.031 Urine Protein NEGATIVE NEGATIVE mg/dL Urine Glucose (UA) NEGATIVE NEGATIVE mg/dL Urine Ketones NEGATIVE NEGATIVE mg/dL Urine Occult Blood NEGATIVE NEGATIVE Urine Nitrate NEGATIVE NEGATIVE Urine Bilirubin NEGATIVE NEGATIVE mg/dL Urine Urobilinogen 0.2 0.2-1.0 mg/dL Urine Leukocyte Esterase NEGATIVE NEGATIVE [place]/uL Urine RBC 0-1 0-1 /HPF Urine WBC 0-1 0-1 /HPF Urine Squamous Epithelial Cells FEW 0-2 /HPF Urine Bacteria None None Seen /HPF Urine HCG, Qualitative NEGATIVE NEGATIVE Urine Opiates Screen NEGATIVE NEGATIVE Urine Barbiturates Screen NEGATIVE NEGATIVE Urine Phencyclidine Screen NEGATIVE NEGATIVE Urine Amphetamines Screen NEGATIVE NEGATIVE Urine Benzodiazepines Screen NEGATIVE NEGATIVE Urine Cocaine Screen NEGATIVE NEGATIVE Urine Marijuana (THC) Screen NEGATIVE NEGATIVE Current Medications Medications (Trade) Dose Ordered Sig/Veronika Route PRN Reason Start Time Stop Time Status Last Admin Dose Admin Acetaminophen (TYLenol 500MG TAB) 500 mg Q6H PRN PO MILD PAIN (1-3) 02/09/25 12:00 03/11/25 11:59 Famotidine (Pepcid 20mg Vial) 20 mg BID IV 02/09/25 21:00 03/11/25 20:59 02/09/25 22:20 20 MG Home Med (Home Medication) DAILY PO 02/10/25 09:00 03/12/25 08:59 Potassium Chloride 100 ml @ 100 mls/hr AD PRN IV POTASSIUM PROTOCOL 02/09/25 12:00 03/11/25 11:59 Potassium Chloride (K-Dur/Klor-Con 20meq) 20 meq AD PRN PO POTASSIUM PROTOCOL 02/09/25 12:00 03/11/25 11:59 Potassium Chloride (KCl 10% Elixir 20meq/15ml) 20 meq AD PRN PO POTASSIUM PROTOCOL 02/09/25 12:00 03/11/25 11:59 Sodium Chloride 1,000 ml @ 75 mls/hr [id number] IV 02/09/25 11:00 03/11/25 10:59 02/09/25 13:49 75 MLS/HR Sodium Chloride 1,000 ml @ 75 mls/hr [id number] IV 02/10/25 12:30 02/10/25 12:28 DC Diagnostics / Radiology: [COPY/PASTE HERE IF NO REPORTS PLEASE DELETE SECTION] Assessment: GI bleed Abdominal pain Syncope Plan: EGD in am Plan for outpatient colonoscopy as planned Continue GI prophylaxis Advance diet as tolerated Avoid NSAIDs Antireflux measures Monitor H&H and transfuse as needed Call with questions, concerns or change in clinical status Patient to follow-up at clinic post discharge Thank you for this consult LEON PEDRAZA [facility] Feb 10, 2025 12:58
--- NOTE | 2025-02-10 13:09 | HMCIMG ---
EXAM: CR Chest, 2 View. CLINICAL HISTORY: palpitations,weight loss COMPARISON: None provided. FINDINGS: LUNGS: There is no mass, infiltrate, or acute pulmonary abnormality. PLEURAL SPACES: No evidence of pleural effusion or pneumothorax. MEDIASTINUM: The cardiomediastinal silhouette is within normal limits. BONES: No aggressive appearing osseous lesion seen. IMPRESSION: 1. No acute cardiopulmonary pathology is evident. /[place]
--- NOTE | 2025-02-10 16:31 | NUR ---
SYNCOPE EPISODE MOTHER OF PATIENT WALKED OUT OF ROOM STATING "SHE JUST FAINTED" IN A CALM TONE, AND STATED THE PATIENT WAS SITTING ON SIDE OF BED AND PASSED OUT ON THE BED. WHEN WALKING INTO ROOM, PATIENT IS LYING IN BED AWAKE, AND TIRED. PATIENT IS ALERT AND ORIENTED TO PERSON AT THIS TIME. CALLED DR. CLARK, NO RESPONSE. DR. CLARK ON THE FLOOR AT THIS TIME, REPORTED INCIDENT. NO NEW ORDERS. STAYED WITH PATIENT UNTIL ALERT AND ORIENTED X3. VITAL SIGNS STABLE. NO PAIN REPORTED AT THIS TIME.
[2025-02-10] MEDS: LACTULOSE 20 GM/30 ML UDCUP PO SCH (20:41)
[2025-02-11] VITALS (25 sets, daily range): BP systolic 89–152; BP diastolic 49–85; PULSE 61–90; RESP 15–20; TEMP 97.1–98.3; O2SAT 97–98
--- NOTE | 2025-02-11 02:10 | HMCIMG ---
EXAM: CT Abdomen and Pelvis Without IV Contrast CLINICAL HISTORY: Abdominal pain and tenderness, recent weight loss. TECHNIQUE: Axial computed tomography images of the abdomen and pelvis without intravenous contrast. CONTRAST: No IV contrast. COMPARISON: None provided. FINDINGS: LUNG BASES: The lung bases appear clear. No pleural effusions. LIVER: Unremarkable. GALLBLADDER AND BILE DUCTS: Gallbladder within normal limits. No radiopaque gallstones. No biliary ductal dilatation. PANCREAS: Unremarkable. SPLEEN: Unremarkable. ADRENAL GLANDS: Unremarkable. KIDNEYS, URETERS, AND BLADDER: Kidneys within normal limits. No hydronephrosis or hydroureter. No urinary calculi. STOMACH AND BOWEL: Unremarkable appearance of the stomach and bowel. No bowel obstruction. No enteritis or colitis. APPENDIX: No evidence of acute appendicitis. PERITONEUM: No free fluid. No free air. LYMPH NODES: Mesenteric lymphadenopathy with multiple enlarged mesenteric lymph nodes, largest measuring 14 ??? 7 mm. No mesenteric fat stranding. REPRODUCTIVE: Unremarkable as visualized. VASCULATURE: No abdominal aortic aneurysm. BONES: No aggressive osseous lesion. No acute osseous pathology. IMPRESSION: 1. No acute intra-abdominal or pelvic abnormality. 2. Mesenteric lymphadenopathy. /[place]
[2025-02-11 05:01] LABS: IMMATURE GRANULOCYTE ABSOLUTE 0.02 K/uL (0-1); NUCLEATED RED BLOOD CELLS 0.0 % (0.0-0.19); PLATELET COUNT (AUTO) 372 K/uL (130-400); RED BLOOD CELL COUNT(AUTO) 4.66 MIL/uL (4.00-5.50); RED CELL DISTRIBUTION WIDTH 13.9 % (11.0-15.5); WHITE BLOOD COUNT (AUTO) 6.2 K/uL (4.8-10.8)
--- NOTE | 2025-02-11 05:30 | NUR ---
SYNCOPE EPISODE/ PANIC ATTACK AT THIS TIME WAS CALLED IN PATIENT ROOM BY PT MOTHER STATING THAT SHE JUST HAD A SYNCOPE EVENT THAT LASTED 3 MINUTES, IMMEDIATELY CALLED TELE MONITORING AND WAS INFORMED THAT PATIENT WAS IN SINUS RHYTHM 74, WENT AHEAD AND GOT AN EKG, THAT ALSO CONFIRM TAT PATIENT IN SINUS RHYTHM 80. PER PATIENT SHE WAS FEELING SOME CRAMPING IN HER STOMACH BEFORE SHE FELT LIKE FAINTING. NO C/O PAIN, VITAL SIGNS STABLE, O2SAT 100% ROOM AIR, WILL CONT TO MONITOR
[2025-02-11 05:52] LABS: CREATININE 0.7 mg/dL (0.5-1.0); GLOMERULAR FILTR. RATE CALC 121.0 mL/min (>90); GLUCOSE,RANDOM 100.0 mg/dL (70-105); SODIUM SERUM 141.0 mmol/L (136-145); UREA NITROGEN, BLOOD 6.0 mg/dL (7-18)
[2025-02-11] MEDS: VITAMIN B COMPLEX 1 CAPSULE PO SCH (08:10)
--- NOTE | 2025-02-11 08:16 | NUR ---
PATIENT TAKEN DOWN FOR EGD PROCEDURE NO DISTRESS NOTED OR PAIN WHEN LEAVING.
[2025-02-11] MEDS ORDERED: LIDOCAINE PF 100MG/5ML (2%) SYRINGE 5ML ONE (08:49)
[2025-02-11] MEDS ORDERED: MIDAZOLAM HCL 1 MG/ML 2ML VIAL ONE (08:51)
--- NOTE | 2025-02-11 11:30 | EKG ---
[facility] Test Date: 2025-02-11 Test Time: 06:01:03 Pat Name: DEENA MATTHEWS Department: [facility] Room: 424 1 Gender: F Transfer Clerk: [id number] : 1995 Requested By: PILY LINDSEY Order Number: [id number] Reading MD: Irwin Stuart Measurements Intervals Irene Rate: 78 P: -1 OK: 114 QRS: 63 QRSD: 84 T: 47 QT: 398 QTc: 453 Interpretive Statements Normal sinus rhythm Compared to ECG 02/09/2025 08:31:49 No significant changes Electronically Signed On 02-11-2025 18:59:15 SOAP TENDER by Irwin Stuart Please click the below link to view image of tracing.
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
[2025-02-12] VITALS (7 sets, daily range): BP systolic 92–112; BP diastolic 41–68; PULSE 57–92; RESP 17–19; TEMP 97.4–98.9; O2SAT 97–98
[2025-02-12 04:37] LABS: NUCLEATED RED BLOOD CELLS 0.0 % (0.0-0.19); PLATELET COUNT (AUTO) 322 K/uL (130-400); RED BLOOD CELL COUNT(AUTO) 4.44 MIL/uL (4.00-5.50); RED CELL DISTRIBUTION WIDTH 13.8 % (11.0-15.5); WHITE BLOOD COUNT (AUTO) 7.1 K/uL (4.8-10.8)
[2025-02-12 04:56] LABS: ASPARTATE AMINOTRANSFERASE 9.0 U/L (10-37); CREATININE 0.8 mg/dL (0.5-1.0); GLOMERULAR FILTR. RATE CALC 104.0 mL/min (>90); GLUCOSE,RANDOM 99.0 mg/dL (70-105); SODIUM SERUM 139.0 mmol/L (136-145); TOTAL PROTEIN, SERUM 6.3 g/dL (6.0-8.3); UREA NITROGEN, BLOOD 6.0 mg/dL (7-18)
[2025-02-12 05:09] LABS: HIV 1&2 ANTIBODY Non-Reactive (Negative)
[2025-02-12] MEDS: PoTASSium chloRIDE 20MEQ ER 20 MEQ ERTAB PO PRN (05:37)
[2025-02-12 06:09] LABS: IMMATURE GRANULOCYTE ABSOLUTE 0.02 K/uL (0-1)
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
[2025-02-12] MEDS: FAMOTIDINE 20MG TAB PO SCH (19:59)
--- NOTE | 2025-02-12 23:47 | NUR ---
BRADYCARDIA 43, NOT SUSTAINED NO C/O OF CHEST PAIN, STABLE VITAL SIGNS, WILL CONT TO MONITOR
[2025-02-13] VITALS (8 sets, daily range): BP systolic 93–113; BP diastolic 53–70; PULSE 51–112; RESP 18–20; TEMP 97.6–97.9; O2SAT 98–100
[2025-02-13 05:44] LABS: NUCLEATED RED BLOOD CELLS 0.0 % (0.0-0.19); PLATELET COUNT (AUTO) 310.0 K/uL (130-400); RED BLOOD CELL COUNT(AUTO) 4.45 MIL/uL (4.00-5.50); RED CELL DISTRIBUTION WIDTH 13.7 % (11.0-15.5); WHITE BLOOD COUNT (AUTO) 6.1 K/uL (4.8-10.8)
[2025-02-13 06:18] LABS: CREATININE 0.7 mg/dL (0.5-1.0); GLOMERULAR FILTR. RATE CALC 121.0 mL/min (>90); GLUCOSE,RANDOM 95.0 mg/dL (70-105); SODIUM SERUM 141.0 mmol/L (136-145); UREA NITROGEN, BLOOD 6.0 mg/dL (7-18)
--- NOTE | 2025-02-13 11:00 | NUR ---
Orthostatic vitals lyin/58 P:112 O2: 100% Standin/70 P: 87 O2: 88%
--- NOTE | 2025-02-13 13:56 | DS ---
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 Glucose 100 mg/dL (70-105) 102 mg/dL (70-105) Total Calcium 9.0 mg/dL (8.5-10.1) 8.5 mg/dL (8.5-10.1) Troponin I High Sensitivity < 4 ng/L (4-50) L B-Type Natriuretic Peptide < 5 pg/mL (0-100) White Blood Count 6.6 K/uL (4.8-10.8) # Red Blood Count 4.53 MIL/uL (4.00-5.50) Hemoglobin 12.8 g/dL (12.0-16.0) Hematocrit 37.4 % (36-48) Mean Corpuscular Volume 82.6 fL (79-99) Mean Corpuscular Hemoglobin 28.3 pg (27.0-33.0) Mean Corpuscular Hemoglobin Concent 34.2 g/dL (32.0-36.0) Red Cell Distribution Width 14.0 % (11.0-15.5) Platelet Count 357 K/uL (130-400) Mean Platelet Volume 9.3 fL (7.5-10.5) Immature Granulocyte % (Auto) 0.2 % (0-1) Neutrophils (%) (Auto) 52.3 % (40.0-77.0) Lymphocytes (%) (Auto) 39.6 % (21.0-51.0) Monocytes (%) (Auto) 6.1 % (3.0-13.0) Eosinophils (%) (Auto) 1.2 % (0.0-8.0) Basophils (%) (Auto) 0.6 % (0.0-5.0) Neutrophils # (Auto) 3.4 K/uL (1.8-7.7) Lymphocytes # (Auto) 2.6 K/uL (1.0-4.8) Monocytes # (Auto) 0.4 K/uL (0.1-1.0) Eosinophils # (Auto) 0.08 K/uL (0.00-0.70) Basophils # (Auto) 0.04 K/uL (0.00-0.20) Absolute Immature Granulocyte (auto 0.01 K/uL (0-1) Nucleated Red Blood Cells 0.0 % (0.0-0.19) Differential Pathologist's Review Pending Test 02/10/25 08:27 Lactic Acid Level 1.3 mmol/L (0.8-2.5) MSE: Patient is a 29 yo female. She is alert and oriented x 3, NAD. Speech is fluent. Gait is not evaluated. Eye contact is consistent. Mood is "ok" and affect is neutral and reactive. Thought process is linear and goal directed. Thought content is negative for SI, HI, AVH. Memory and cognition are grossly intact. Insight and judgment are fair. Assessment: MDD, moderate, recurrent PTSD Anxiety Recommendations: -Patient is not currently suicidal, homicidal or psychotic and she does not require inpatient psychiatric admission at this time. -Continue Lexapro 20 mg daily and please provide RX at DC -Start Buspar 10 mg BID and please provide RX at DC -If she needs medication for sleep I would recommend Remeron 7.5 mg QHS f -Please make referrals to outpatient psychiatry and therapy after DC -Psychiatry signing off. *15 mins was spent [id number] with patient and 25 mins was spent on chart review and documentation JONNA DEAN DO Feb 10, 2025 12:36 Electronically Signed by: JONNA DEAN DO02/10/25 1619 Electronically Co-Signed by: CONSULTATION REPORT Name: DEENA PASTOR Acct: [id number] MR: [id number] : 1995 Admit Date: 02/09/25 LEON PEDRA[facility] [place] [address] [place] [id number] GASTROENTEROLOGY CONSULTATION NOTE Date of Consultation: Feb 10, 2025 Time of Consultation: 12:58 History of Present Illness: This is a 29-year-old female with past medical history of PTSD, anxiety who presented due to syncope. She reported nonspecific abdominal pain and bloody stools. She had been scheduled for outpatient EGD and colonoscopy. Cardiology was consulted due to syncope. LFTs normal. Hemoglobin is stable. She is pending a CT abdomen. Review of Systems: CONSTITUTIONAL: No malaise or change in sensation of wellbeing. ENMT: No rhinorrhea, otorrhea, sinus pain, ear ache. CARDIOVASCULAR: No angina, palpitations, orthopnea or paroxysmal dyspnea. RESPIRATORY: No SOB. GASTROINTESTINAL: No abdominal pain, nausea, vomiting, diarrhea, hematemesis, melena or change in the patient's habitual bowel movements consistency/number. GENITOURINARY: No dysuria, hematuria or change in bladder continence. MUSCULOSKELETAL: No new muscle pain or decrease in muscular strength. No new joint swelling, redness or tenderness. SKIN: No new rash. Past Medical History: PAST MEDICAL HISTORY: PTSD, anxiety PAST SURGICAL HISTORY: History of PAST SOCIAL HISTORY: Denied any smoking, alcohol, drug use FAMILY HISTORY History of brain malignancy in patient's cousin. Patient's sibling has a his tory of renal disease Coded Allergies: No Known Allergies (Unverified Allergy, Unknown, 02/06/25) Coded Allergies: strawberry (Unverified Allergy, Severe, HIVES, 02/09/25) banana (Unverified Allergy, Intermediate, TINGLING MOUTH, 02/09/25) No Known Allergies (Unverified Allergy, Unknown, 02/06/25) Physical Exam: GEN: Awake, alert, oriented in person, time and place, and in no acute distress. HEENT: No sinus tenderness. Tympanic membranes were not examined. No rhinorrhea. Oral pharyngeal mucosa is pink, moist and within normal limits. Neck is supple with no cervical lymphadenopathy, thyromegaly or JVD. CHEST: Inspection, palpation and percussion of the chest were unremarkable. Lung auscultation revealed normal breath sounds bilaterally. CARDIAC: PMI is within normal limits. Heart sounds are regular. Normal S1, S2. No gallop or murmur. ABD: Soft, non-tender and not distended. No peritoneal signs on palpation. No organomegaly. Normal bowel sounds. EXT: No cyanosis or clubbing. No edema. SKIN: Intact. No rashes. JOINTS: No evidence of synovitis or acute arthritis. NEURO: Alert and oriented to name, place and person. Cranial nerve examination is unremarkable. No focal motor deficits. Normal speech. Gait is normal. Strength is normal. Vital Sign (Last 24 Hours) 02/09/25 02/10/25 22:55 08:33 Temp 95.9 Pulse 86 Resp 14 B/P (MAP) 104/71 Pulse Ox 96 O2 Delivery Room Air O2 Flow Rate 0 FiO2 21 Intake & Output (last 24hrs) 02/09/25 02/09/25 02/10/25 15:00 23:00 07:00 Intake Total 975.0 ml Output Total 400 ml Balance 575.0 ml Laboratory: [ ] Laboratory: Test 02/10/25 08:27 02/10/25 07:03 02/10/25 04:20 02/09/25 15:43 Range/Units Lactic Acid Level 1.3 0.8-2.5 mmol/L Lipase 41 16-77 U/L Sodium Level 141 136-145 mmol/L Potassium Level 3.7 3.5-5.1 mmol/L Chloride Level 106 101-111 mmol/L Carbon Dioxide Level 22 21-32 mmol/L Blood Urea Nitrogen 9 7-18 mg/dL Creatinine 0.7 0.5-1.0 mg/dL Glomerular Filtration Rate Calc 121 >90 mL/min Random Glucose 102 70-105 mg/dL Total Calcium 8.5 8.5-10.1 mg/dL White Blood Count 6.6 # 4.8-10.8 K/uL Red Blood Count 4.53 4.00-5.50 MIL/uL Hemoglobin 12.8 12.0-16.0 g/dL Hematocrit 37.4 36-48 % Mean Corpuscular Volume 82.6 79-99 fL Mean Corpuscular Hemoglobin 28.3 27.0-33.0 pg Mean Corpuscular Hemoglobin Concent 34.2 32.0-36.0 g/dL Red Cell Distribution Width 14.0 11.0-15.5 % Platelet Count 357 130-400 K/uL Mean Platelet Volume 9.3 7.5-10.5 fL Immature Granulocyte % (Auto) 0.2 0-1 % Neutrophils (%) (Auto) 52.3 40.0-77.0 % Lymphocytes (%) (Auto) 39.6 21.0-51.0 % Monocytes (%) (Auto) 6.1 3.0-13.0 % Eosinophils (%) (Auto) 1.2 0.0-8.0 % Basophils (%) (Auto) 0.6 0.0-5.0 % Neutrophils # (Auto) 3.4 1.8-7.7 K/uL Lymphocytes # (Auto) 2.6 1.0-4.8 K/uL Monocytes # (Auto) 0.4 0.1-1.0 K/uL Eosinophils # (Auto) 0.08 0.00-0.70 K/uL Basophils # (Auto) 0.04 0.00-0.20 K/uL Absolute Immature Granulocyte (auto 0.01 0-1 K/uL Nucleated Red Blood Cells 0.0 0.0-0.19 % B-Type Natriuretic Peptide < 5 0-100 pg/mL Test 02/09/25 15:42 02/09/25 08:49 02/09/25 08:45 Range/Units Troponin I High Sensitivity < 4 L 4-50 ng/L Hemoglobin A1c 5.3 4.0-6.0 % Estimated Average Glucose (eAG) 105 70-126 mg/dL Total Bilirubin 0.8 0.2-1.0 mg/dL Direct Bilirubin 0.1 0.0-0.3 mg/dL Aspartate Amino Transf (AST/SGOT) 14 10-37 U/L Alanine Aminotransferase (ALT/SGPT) 16 12-78 U/L Alkaline Phosphatase 50 50-136 U/L Total Protein 7.5 6.0-8.3 g/dL Albumin 4.1 3.5-5.0 g/dL Vitamin B12 Level 376 193-986 pg/mL Thyroid Stimulating Hormone (TSH) 1.69 0.36-3.74 uIU/mL Urine Color COLORLESS YELLOW Urine Appearance CLEAR CLEAR Urine pH 6.0 5.0-8.0 Urine Specific [place] 1.008 1.001-1.031 Urine Protein NEGATIVE NEGATIVE mg/dL Urine Glucose (UA) NEGATIVE NEGATIVE mg/dL Urine Ketones NEGATIVE NEGATIVE mg/dL Urine Occult Blood NEGATIVE NEGATIVE Urine Nitrate NEGATIVE NEGATIVE Urine Bilirubin NEGATIVE NEGATIVE mg/dL Urine Urobilinogen 0.2 0.2-1.0 mg/dL Urine Leukocyte Esterase NEGATIVE NEGATIVE [place]/uL Urine RBC 0-1 0-1 /HPF Urine WBC 0-1 0-1 /HPF Urine Squamous Epithelial Cells FEW 0-2 /HPF Urine Bacteria None None Seen /HPF Urine HCG, Qualitative NEGATIVE NEGATIVE Urine Opiates Screen NEGATIVE NEGATIVE Urine Barbiturates Screen NEGATIVE NEGATIVE Urine Phencyclidine Screen NEGATIVE NEGATIVE Urine Amphetamines Screen NEGATIVE NEGATIVE Urine Benzodiazepines Screen NEGATIVE NEGATIVE Urine Cocaine Screen NEGATIVE NEGATIVE Urine Marijuana (THC) Screen NEGATIVE NEGATIVE Current Medications Medications (Trade) Dose Ordered Sig/Veronika Route PRN Reason Start Time Stop Time Status Last Admin Dose Admin Acetaminophen (TYLenol 500MG TAB) 500 mg Q6H PRN PO MILD PAIN (1-3) 02/09/25 12:00 03/11/25 11:59 Famotidine (Pepcid 20mg Vial) 20 mg BID IV 02/09/25 21:00 03/11/25 20:59 02/09/25 22:20 20 MG Home Med (Home Medication) DAILY PO 02/10/25 09:00 03/12/25 08:59 Potassium Chloride 100 ml @ 100 mls/hr AD PRN IV POTASSIUM PROTOCOL 02/09/25 12:00 03/11/25 11:59 Potassium Chloride (K-Dur/Klor-Con 20meq) 20 meq AD PRN PO POTASSIUM PROTOCOL 02/09/25 12:00 03/11/25 11:59 Potassium Chloride (KCl 10% Elixir 20meq/15ml) 20 meq AD PRN PO POTASSIUM PROTOCOL 02/09/25 12:00 03/11/25 11:59 Sodium Chloride 1,000 ml @ 75 mls/hr [id number] IV 02/09/25 11:00 03/11/25 10:59 02/09/25 13:49 75 MLS/HR Sodium Chloride 1,000 ml @ 75 mls/hr [id number] IV 02/10/25 12:30 02/10/25 12:28 DC Diagnostics / Radiology: [COPY/PASTE HERE IF NO REPORTS PLEASE DELETE SECTION] Assessment: GI bleed Abdominal pain Syncope Plan: EGD in am Plan for outpatient colonoscopy as planned Continue GI prophylaxis Advance diet as tolerated Avoid NSAIDs Antireflux measures Monitor H&H and transfuse as needed Call with questions, concerns or change in clinical status Patient to follow-up at clinic post discharge Thank you for this consult [facility]ON PEDRAZA [facility] Feb 10, 2025 12:58 Electronically Signed by: Electronically Co-Signed by: Procedure(s): [place] [address] [address] IMAGING REPORT Signed PATIENT: DEENA PASTOR MR#: [id number] : 1995 SEX: F AGE: 29 LOCATION: [facility] ORDER 1051 STATUS: ADM IN REPORT#: [id number] SERVICE 1045 REASON: SYNCOPE ORDERING PHYSICIAN: PILY LINDSEY MD PROCEDURE: CAROTID - US CAROTID DUPLEX EXAMINATION: DUPLEX ULTRASOUND EXAMINATION OF THE BILATERAL CAROTID AND VERTEBRAL ARTERIES. CLINICAL HISTORY: Syncope. COMPARISON: CT head without contrast dated 02/06/2025. TECHNIQUE: Real-time ultrasound scan of the bilateral carotid and vertebral arteries, 2-D grayscale, with color Doppler flow and spectral waveform analysis. FINDINGS: Color and spectral Doppler interrogation of the carotid vessels on the right demonstrate peak systolic velocities as follows: CCA (Proximal and distal): 141 and 129 cm/s respectively. ECA: 90 cm/s. ICA (Proximal, mid, and distal): 113, 108, and 90 cm/s respectively. Vertebral artery demonstrates antegrade flow: 59 cm/s. Right ICA/CCA ratio: 0.9 Peak systolic velocities on the left are as follows: CCA (Proximal and distal): 157 and 102 cm/s respectively. ECA: 106 cm/s. ICA (Proximal, mid, and distal): 114, 69, and 85 cm/s respectively. Vertebral artery demonstrates antegrade flow: 48 cm/s. Left ICA/CCA ratio: 1.1 IMPRESSION: There is no significant stenosis or flow limiting lesions. /Muse DICTATED BY: TRACI BERTRAND Jr., MD DATE: 02/10/25708 ELECTRONICALLY SIGNED BY: TRACI BERTRAND Jr., MD DATE: 02/10/25[address] [place] [address] IMAGING REPORT Signed PATIENT: DEEAN PASTOR MR#: [id number] : 1995 SEX: F AGE: 29 LOCATION: [facility] ORDER 21 STATUS: ADM IN REPORT#: [id number] SERVICE 21 REASON: syncope ORDERING PHYSICIAN: PILY LINDSEY MD PROCEDURE: ECHO CMP - ECHO 2-D COMPLETE APPROVED REPORT EXAM: Two-dimensional and M-mode echocardiogram with Doppler and color Doppler. INDICATION ICD: Syncope R55 2D Dimensions RVDd 3.5 cm LVEF(%) 54.9 (>50%) LVED Vol(simp.) 70.0 mL IVSd 0.6 (0.7-1.1cm) FS(%) 28 % LVES Vol(simp.) 27.0 mL LVDd 3.8 (3.8-5.6cm) LA (2D) 2.9 (1.6-4.0cm) LVEF(%, simp.) 61 % PWd 0.6 (0.7-1.1cm) Ao Root(2D) 2.6 (2.0-3.7cm) LA ESV INDEX (BP) 11.91 mL/m2 IVSs 0.8 cm LVOT diam 1.9 (1.8-2.4cm) LVDs 2.7 (2.5-4.0cm) IVC diam 1.6 cm PWs 1.3 cm Deformation Strain Apical 4 -20.2 % Apical 2 -19.9 % Apical 3 -16.7 % Global Strain -18.9 % M-Mode Dimensions EPSS 0.3 cm LA (MM) 2.9 (1.6-4.0cm) Ao Root(MM) 2.8 (2.0-3.7cm) Aortic Valve AoV Vmax 1.0 m/s Ao Peak GR 3.9 mmHg LVOT Vmax 0.9 m/s AoV VTI 0.2 m Ao Mean GR 2.6 mmHg LVOT VTI 0.15 m JOI (VMAX) 2.66 cm2 JOI (VTI) 2.5 cm2 Mitral Valve MV E Vmax 61.3 cm/s DECEL Time 181 ms MV A Vmax 45.2 cm/s P 1/2 T 46 ms E/A ratio 1.4 MVA (PHT) 4.8 cm2 TDI E/E' Medial 5.5 E/E' Lateral 4.5 Medial E' Peak V 11.09 cm/s Lateral E' Peak V 13.57 cm/s Pulmonary Valve PV Vmax 0.9 m/s PV Mean GR 1.8 mmHg PV Peak GR 3.1 mmHg Tricuspid Valve TR Vmax 1.8 m/s RAP (EST) 3 mmHg RVSP 16.3 mmHg TR Peak GR 13.3 mmHg Left Ventricle The left ventricle is normal size. There is normal LV segmental wall motion. There is normal left ventricular wall thickness. LVEF is 60-65%. The left ventricular diastolic function is normal. Right Ventricle The right ventricle is normal size. The right ventricular systolic function is normal. Atria The left atrium size is normal. The right atrium size is normal. Aortic Valve The aortic valve is normal in structure. No aortic regurgitation is present. There is no aortic valvular stenosis. Mitral Valve The mitral valve is normal in structure. There is trace mitral valve regurgitation noted. There is no mitral valve stenosis. Tricuspid Valve The tricuspid valve is normal in structure. There is trace of tricuspid valve regurgitation noted. Pulmonic Valve Pulmonic valve is not well visualized. There is no pulmonic valvular regurgitation. Great Vessels The aortic root is normal in size. The IVC is normal in size and collapses >50% with inspiration. Pericardium There is no pericardial effusion. Other Information Quality : Adequate Conclusion The left ventricle is normal size. LVEF is 60-65% with normal LV segmental wall motion. The left ventricular diastolic function is normal. The right ventricular systolic function is normal. Both atria are normal in size. No hemodynamically significant valvular abnormalities. There is no pericardial effusion. DICTATED BY: SHANIQUA CORTEZ MD DATE: 02/09/25 154 ELECTRONICALLY SIGNED BY: SHANIQUA CORTEZ MD DATE: 02/09/[address] [address] IMAGING REPORT Signed PATIENT: DEENA PASTOR MR#: [id number] : 1995 SEX: F AGE: 29 LOCATION: [facility] ORDER 9 STATUS: ADM IN REPORT#: [id number] SERVICE 0710 REASON: palpitations,weight loss ORDERING PHYSICIAN: JOSÉ MIGUEL CLARK MD PROCEDURE: CXR2VW - CHEST 2VWS EXAM: CR Chest, 2 View. CLINICAL HISTORY: palpitations,weight loss COMPARISON: None provided. FINDINGS: LUNGS: There is no mass, infiltrate, or acute pulmonary abnormality. PLEURAL SPACES: No evidence of pleural effusion or pneumothorax. MEDIASTINUM: The cardiomediastinal silhouette is within normal limits. BONES: No aggressive appearing osseous lesion seen. IMPRESSION: 1. No acute cardiopulmonary pathology is evident. /Muse DICTATED BY: KATHLEEN VELAZQUEZ MD DATE: 02/10/251407 ELECTRONICALLY SIGNED BY: KATHLEEN VELAZQUEZ MD DATE: 02/10/251407 [address] [address] IMAGING REPORT Signed PATIENT: DEENA PASTOR MR#: [id number] : 1995 SEX: F AGE: 29 LOCATION: [facility] ORDER 2 STATUS: ADM IN REPORT#: [id number] SERVICE 1 REASON: abdominal pain and tenderness and recent weight loss ORDERING PHYSICIAN: CHRIS NOVAK MD PROCEDURE: ABD PEL WO - CT ABDOMEN/PELVIS W/O CONTRAST EXAM: CT Abdomen and Pelvis Without IV Contrast CLINICAL HISTORY: Abdominal pain and tenderness, recent weight loss. TECHNIQUE: Axial computed tomography images of the abdomen and pelvis without intravenous contrast. CONTRAST: No IV contrast. COMPARISON: None provided. FINDINGS: LUNG BASES: The lung bases appear clear. No pleural effusions. LIVER: Unremarkable. GALLBLADDER AND BILE DUCTS: Gallbladder within normal limits. No radiopaque gallstones. No biliary ductal dilatation. PANCREAS: Unremarkable. SPLEEN: Unremarkable. ADRENAL GLANDS: Unremarkable. KIDNEYS, URETERS, AND BLADDER: Kidneys within normal limits. No hydronephrosis or hydroureter. No urinary calculi. STOMACH AND BOWEL: Unremarkable appearance of the stomach and bowel. No bowel obstruction. No enteritis or colitis. APPENDIX: No evidence of acute appendicitis. PERITONEUM: No free fluid. No free air. LYMPH NODES: Mesenteric lymphadenopathy with multiple enlarged mesenteric lymph nodes, largest measuring 14 ??? 7 mm. No mesenteric fat stranding. REPRODUCTIVE: Unremarkable as visualized. VASCULATURE: No abdominal aortic aneurysm. BONES: No aggressive osseous lesion. No acute osseous pathology. IMPRESSION: 1. No acute intra-abdominal or pelvic abnormality. 2. Mesenteric lymphadenopathy. /Muse DICTATED BY: KATHLEEN VELAZQUEZ MD DATE: 02/11/25308 ELECTRONICALLY SIGNED BY: KATHLEEN VELAZQUEZ MD DATE: 02/11/25308 Assessment/Plan: Discharge Diagnosis: Recurrent syncope secondary to POTS and autonomic dysfunction , POA Moderate Major Depressive disorder, POA PTSD ,POA Anxiety,POA Unintentional weight loss Constipation secondary to autonomic dysfunction Mild thrombocytosis - resolved Recently diagnosed Chlamydia- treated with Doxycycline Mesenteric lymphadenopathy Discharge Instructions: DATE OF ADMISSION: 02.09.2025 DATE OF DISCHARGE: 02.13.2025 DISPOSITION: home CONDITION: Medically stable CONSULTANTS: PERRY Espinoza MD - Gastroenterology BRIANNA CARMEN MD - Neurology SHANIQUA CORTEZ MD - Cardiology JONNA DEAN MD - Telepsychiatry FOLLOW UP APPOINTMENTS: Primary Care Provider: Within 3-5 days for post-hospital follow-up, medication review, and coordination of referrals. Recommended to evaluation of venereal diseases including RPR, hepatitis B, and hepatitis C, and to review pending chlamydia, HSV testing, and peripheral blood smear reports . Cardiology: Within 24 weeks for further evaluation and management of POTS vs autonomic dysfunction and to review orthostatic vitals. Gastroenterology: For review of EGD biopsy results and to proceed with scheduled outpatient colonoscopy next week. Psychiatry : Follow-up within 12 weeks for monitoring of PTSD, anxiety, and response to newly adjusted medications. SPECIFIC INSTRUCTIONS: Continue taking all medications as prescribed, including Lexapro 20 mg daily, BuSpar 10 mg twice daily. Stay well-hydrated with adequate salt and fluid intake to help manage symptoms of POTS versus autonomic dysfunction. Continue to wear compression socks . Avoid prolonged standing, rise slowly from sitting or lying positions, and avoid straining during bowel movements; use stool softeners as needed to prevent constipation. Monitor for worsening dizziness, palpitations, chest pain, fainting episodes, fever, severe abdominal pain, or confusion, and return to the emergency department if these symptoms occur. Pending results requiring follow-up include chlamydia test, HSV, and peripheral smear. You will need to repeat your CT abdomen in 1 month to reassess mesenteric lymphadenopathy. Continue a regular diet as tolerated. Take Pepcid and Zofran orally as needed for symptoms. Ensure safe ambulation at home and avoid driving until episodes of syncope are better controlled. PROCEDURES: EGD IMAGING: report attached to summary MICROBIOLOGY: report attached to summary HOME MEDICATIONS: see med rec NEW MEDICATIONS: See medication reconciliation EMERGENCY INSTRUCTIONS: The patient was instructed to present to the nearest Emergency department or call 911 once their symptoms will return or worsen. Home Medications: Active Scripts Potassium Bicarbonate/Cit AC (Klor-Con-Ef/K-Lyte) 25 Meq Eftb, 1 TAB PO DAILY for 5 Days, #5 TAB 0 Refills Prov:DAVID WHITE 02/08/25 Reported Medications Linaclotide (Linzess) 290 Mcg Capsule, 1 CAP PO DAILY for 30 Days, #30 CAP 0 Refills 02/10/25 Famotidine (Pepcid) 20 Mg Tablet, 20 MG PO BID, TAB 02/10/25 New Medications: Buspirone HCl (Buspirone HCl) 10 Mg Tablet 1 TAB PO BID for 10 Days, #20 TAB 0 Refills Escitalopram Oxalate (Lexapro) 20 Mg Tablet 1 TAB PO DAILY for 10 Days, #10 TAB 0 Refills Continued Medications: Famotidine (Pepcid) 20 Mg Tablet 20 MG PO BID, TAB Linaclotide (Linzess) 290 Mcg Capsule 1 CAP PO DAILY for 30 Days, #30 CAP 0 Refills Discontinued Medications: Potassium Bicarbonate/Cit AC (Klor-Con-Ef/K-Lyte) 25 Meq Eftb 1 TAB PO DAILY for 5 Days, #5 TAB 0 Refills Time spent arranging discharge: 1-30 minutes ATTESTATION BY PHYSICIAN I have seen and examined the patient. I reviewed the documentation, medical decision making, and treatment plan as noted by the resident provider above. I agree with the findings and plan of care. Kai Montemayor MD, LAKSHMI MD Feb 13, 2025 13:56 JOSÉ MIGUEL CLARK MD Feb 13, 2025 14:50
[2025-02-13] MEDS ORDERED: BUSP10TA3 PO (14:45)
[2025-02-13] MEDS ORDERED: ESCI20TA PO (14:45)
[2025-02-13] MEDS ORDERED: ONDA-243 PO (14:52)
--- NOTE | 2025-02-13 15:00 | NUR ---
PT sitting in bed w/ eyes open A&Ox4 able to make needs known. Discharge instructions given written and verbally in kar[place] language. PT verbally acknowledged understanding. I.V. removed intact w/o complications. PT escorted to POV via WC by [facility] w/o complications.
--- NOTE | 2025-02-13 22:33 | PN ---
GASTROENTEROLOGY PROGRESS NOTE Date of Visit: Feb 13, 2025 Time of Visit: 22:33 Events / Notes: [ ] Review of Systems: CONSTITUTIONAL: No malaise or change in sensation of wellbeing. ENMT: No rhinorrhea, otorrhea, sinus pain, ear ache. CARDIOVASCULAR: No angina, palpitations, orthopnea or paroxysmal dyspnea. RESPIRATORY: No SOB. GASTROINTESTINAL: No abdominal pain, nausea, vomiting, diarrhea, hematemesis, melena or change in the patient's habitual bowel movements consistency/number. GENITOURINARY: No dysuria, hematuria or change in bladder continence. MUSCULOSKELETAL: No new muscle pain or decrease in muscular strength. No new joint swelling, redness or tenderness. SKIN: No new rash. Physical Exam: GEN: Awake, alert, oriented in person, time and place, and in no acute distress. HEENT: No sinus tenderness. Tympanic membranes were not examined. No rhinorrhea. Oral pharyngeal mucosa is pink, moist and within normal limits. Neck is supple with no cervical lymphadenopathy, thyromegaly or JVD. CHEST: Inspection, palpation and percussion of the chest were unremarkable. Lung auscultation revealed normal breath sounds bilaterally. CARDIAC: PMI is within normal limits. Heart sounds are regular. Normal S1, S2. No gallop or murmur. ABD: Soft, non-tender and not distended. No peritoneal signs on palpation. No organomegaly. Normal bowel sounds. EXT: No cyanosis or clubbing. No edema. SKIN: Intact. No rashes. JOINTS: No evidence of synovitis or acute arthritis. NEURO: Alert and oriented to name, place and person. Cranial nerve examination is unremarkable. No focal motor deficits. Normal speech. Gait is normal. Strength is normal. Laboratory: [ ] Laboratory: Test 02/13/25 05:34 02/12/25 13:11 02/12/25 07:40 02/12/25 04:21 Range/Units White Blood Count 6.1 4.8-10.8 K/uL Red Blood Count 4.45 4.00-5.50 MIL/uL Hemoglobin 12.6 12.0-16.0 g/dL Hematocrit 37.8 36-48 % Mean Corpuscular Volume 84.9 79-99 fL Mean Corpuscular Hemoglobin 28.3 27.0-33.0 pg Mean Corpuscular Hemoglobin Concent 33.3 32.0-36.0 g/dL Red Cell Distribution Width 13.7 11.0-15.5 % Platelet Count 310 130-400 K/uL Mean Platelet Volume 9.0 7.5-10.5 fL Nucleated Red Blood Cells 0.0 0.0-0.19 % Sodium Level 141 136-145 mmol/L Potassium Level 3.8 3.5-5.1 mmol/L Chloride Level 108 101-111 mmol/L Carbon Dioxide Level 24 21-32 mmol/L Blood Urea Nitrogen 6 L 7-18 mg/dL Creatinine 0.7 0.5-1.0 mg/dL Glomerular Filtration Rate Calc 121 >90 mL/min Random Glucose 95 70-105 mg/dL Total Calcium 8.5 8.5-10.1 mg/dL Stool Occult Blood NEGATIVE NEGATIVE Cortisol AM Sample 17.7 6.2-19.4 ug/dL Immature Granulocyte % (Auto) 0.3 0-1 % Neutrophils (%) (Auto) 55.2 40.0-77.0 % Lymphocytes (%) (Auto) 35.1 21.0-51.0 % Monocytes (%) (Auto) 7.5 3.0-13.0 % Eosinophils (%) (Auto) 1.4 0.0-8.0 % Basophils (%) (Auto) 0.5 0.0-5.0 % Neutrophils # (Auto) 4.1 1.8-7.7 K/uL Lymphocytes # (Auto) 2.6 1.0-4.8 K/uL Monocytes # (Auto) 0.6 0.1-1.0 K/uL Eosinophils # (Auto) 0.10 0.00-0.70 K/uL Basophils # (Auto) 0.04 0.00-0.20 K/uL Absolute Immature Granulocyte (auto 0.02 0-1 K/uL Differential Pathologist's Review Total Bilirubin 0.7 0.2-1.0 mg/dL Aspartate Amino Transf (AST/SGOT) 9 L 10-37 U/L Alanine Aminotransferase (ALT/SGPT) 11 L 12-78 U/L Alkaline Phosphatase 39 L 50-136 U/L Total Protein 6.3 6.0-8.3 g/dL Albumin 3.2 L 3.5-5.0 g/dL HIV (1&2) Antibody Non-Reactive Negative HIV P24 Antigen, Qualitative Non-Reactive Negative Current Medications Medications (Trade) Dose Ordered Sig/Veronika Route PRN Reason Start Time Stop Time Status Last Admin Dose Admin Acetaminophen (TYLenol 500MG TAB) 500 mg Q6H PRN PO MILD PAIN (1-3) 02/09/25 12:00 02/13/25 15:51 DC 02/12/25 20:01 500 MG Buspirone HCl (BUspar) 10 mg BID PO 02/10/25 21:00 02/13/25 15:51 DC 02/13/25 08:22 10 MG Famotidine (Pepcid 20mg Vial) 20 mg BID IV 02/09/25 21:00 02/12/25 12:53 DC 02/12/25 08:18 20 MG Famotidine (Pepcid 20mg Tab) 20 mg BID PO 02/12/25 21:00 02/13/25 15:51 DC 02/13/25 08:22 20 MG Home Med (Home Medication) DAILY PO 02/10/25 09:00 02/13/25 15:51 DC Lactulose (Constulose 20gm/ 30ml Udcup) 20 gm BID PO 02/10/25 21:00 02/13/25 15:51 DC 02/13/25 08:22 20 GM Mirtazapine (REMeron 15 MG TAB) 7.5 mg HS PRN PO INSOMNIA 02/10/25 20:00 02/13/25 15:51 DC Ondansetron HCl (zoFRAN 4MG TABLET) 4 mg Q8H PRN PO NAUSEA/VOMITING 02/12/25 13:00 02/13/25 15:51 DC 02/12/25 15:51 4 MG Ondansetron HCl (zoFRAN 4MG INJ) 4 mg Q8H PRN IVP NAUSEA/VOMITING 02/10/25 13:00 02/12/25 12:54 DC 02/11/25 18:06 4 MG Potassium Chloride 100 ml @ 100 mls/hr AD PRN IV POTASSIUM PROTOCOL 02/09/25 12:00 02/13/25 15:51 DC Potassium Chloride (K-Dur/Klor-Con 20meq) 20 meq AD PRN PO POTASSIUM PROTOCOL 02/09/25 12:00 02/13/25 15:51 DC 02/12/25 07:01 20 MEQ Potassium Chloride (KCl 10% Elixir 20meq/15ml) 20 meq AD PRN PO POTASSIUM PROTOCOL 02/09/25 12:00 02/13/25 15:51 DC Sodium Chloride 1,000 ml @ 75 mls/hr [id number] IV 02/09/25 11:00 02/13/25 15:51 DC 02/13/25 08:23 75 MLS/HR Sodium Chloride 1,000 ml @ 75 mls/hr [id number] IV 02/10/25 12:30 02/10/25 12:28 DC Vitamin B Complex/ Folic Acid (B Complex) 1 cap DAILY PO 02/11/25 09:00 02/13/25 15:51 DC 02/13/25 08:22 1 CAP Diagnostics / Radiology: [COPY/PASTE HERE IF NO REPORTS PLEASE DELETE SECTION] Assessment: GI bleed Abdominal pain Syncope Plan: Plan for outpatient colonoscopy as planned Continue GI prophylaxis Advance diet as tolerated Avoid NSAIDs Antireflux measures Monitor H&H and transfuse as needed Call with questions, concerns or change in clinical status Patient to follow-up at clinic post discharge Thank you for this consult LEON PEDRAZA [employer] Feb 13, 2025 22:33
[2025-02-15 00:09] LABS: HERPES SIMPLEX VIRUS-1 BY PCR Negative (Negative); HERPES SIMPLEX VIRUS-2 BY PCR Negative (Negative)
== END 2025-02-13 15:45 | disposition home or self-care (01) | DRG 74 ==
LOC: EDH 08:12 → EDHIP 10:45 → 4DH 22:38
PROVIDERS: ADMIT Internal Medicine; ATTEND Internal Medicine
PROC: 0DB98ZX Excision of Duodenum, Via Natural or Artificial Opening Endoscopic, Diagnostic (ICD-10-PCS; principal; 2025-02-11)
PROC: 0DB68ZX Excision of Stomach, Via Natural or Artificial Opening Endoscopic, Diagnostic (ICD-10-PCS; 2025-02-11)
PROC: 0DB58ZX Excision of Esophagus, Via Natural or Artificial Opening Endoscopic, Diagnostic (ICD-10-PCS; 2025-02-11)
DX: G90.9 Disorder of the autonomic nervous system, unspecified (principal); F33.1 Major depressive disorder, recurrent, moderate; R63.4 Abnormal weight loss; G90.A Postural orthostatic tachycardia syndrome [POTS]; D75.839 Thrombocytosis, unspecified; F43.10 Post-traumatic stress disorder, unspecified; K59.00 Constipation, unspecified; K60.2 Anal fissure, unspecified; F41.0 Panic disorder [episodic paroxysmal anxiety]; F19.90 Other psychoactive substance use, unspecified, uncomplicated; E87.6 Hypokalemia; K21.9 Gastro-esophageal reflux disease without esophagitis; Z98.891 History of uterine scar from previous surgery; Z79.899 Other long term (current) drug therapy
CPT/HCPCS: 36415; 43239; 71046; 74176; 80048; 80053; 80076; 80305; 81001; 81025; 82270; 82306; 82533; 82607; 82728; 83036; 83605; 83690; 83880; 84425; 84443; 84484; 85025; 85027; 86701; 87390; 87529; 93005; 93306; 93356; 93880; 99285; G0378; J2003; J2250; J2405; J2704; J7030; Q0162; A4215; A4222; A4223; A4620; J1308; J3490